=== PATIENT | male | born 1950 | race Caucasian/White ===

== ENCOUNTER → 2016-06-09 | Outpatient (CLI) | payer OTHER ==
[~2016-06-09] VITALS: Ht 182.9 cm; Wt 156.4 kg
[~2016-06-09] MED LIST: ALBU0.08 INH; ALL100 PO; ALLO100T PO; AMLO10TA4 PO; ASCA500 PO; ASPI81TA28 PO; ATOR-24 PO; CARV6.252 PO; CLB/200 PO; CYAN10005 PO; DIFL500T PO; ETOD500T95 PO; FEXO1TAB58 PO; FEXO60TA PO; FLM4 PO; FRRS300 PO; HYDR-5688 PO; NORT50CA PO; NORT75CA PO; NSNN50; NXM/40 PO; OMEP20TA PO; OXGN; OXYC-57 PO; POLY335019 PO; PREG200C PO; RANI300T2 PO; SPR25 PO; SULF500T36 PO; TAMS0.4C38 PO; TOPI100T45 PO; TORS10TA14 PO; TRAM100T PO
[2016-06-09 16:26] VITALS: BP 146/85; PULSE 82; Ht 182.9 cm; Wt 156.4 kg
== END | disposition home or self-care (01) ==
LOC: C.NEUR 15:37
PROVIDERS: ATTEND Internal Medicine Pulmonary Disease
DX: G47.33 Obstructive sleep apnea (adult) (pediatric) (principal); J96.90 Respiratory failure, unspecified, unspecified whether with hypoxia or hypercapnia; I27.81 Cor pulmonale (chronic)

== ENCOUNTER → 2016-06-18 | Outpatient (CLI) | payer OTHER ==
[2016-06-18 17:08] LABS: BASO % 0.5 %; BASO ABS # 0.04 K/uL (0-0.2); COMPLETE YES; EOS % 3.5 %; HEMATOCRIT 45.5 % (42-52); IG% 0.5 %; LYMPH % 36.7 %; LYMPH ABS # 2.83 K/uL (1.2-3.4); MEAN CELL VOLUME 89.2 fL (80-100); MEAN CORPUSCULAR HEMOGLOBIN 28.6 pg (25-34); MEAN CORPUSCULAR HGB CONC 32.1 g/dl (32-36); MEAN PLATELET VOLUME 11.2 fL (7.4-10.4); MONO % 10.4 %; NEUT % 48.4 %; PLATELET COUNT 137 K/uL (130-400); WHITE BLOOD COUNT 7.71 K/uL (4.8-10.8)
[2016-06-18 17:22] LABS: ALT/SGPT 20 U/L (12-78)
[2016-06-18 17:25] LABS: ALKALINE PHOSPHATASE 93 U/L (45-117); AST/SGOT 13 U/L (15-37)
== END | disposition home or self-care (01) ==
LOC: C.LABBC 15:02
PROVIDERS: ATTEND Internal Medicine Rheumatology
DX: Z92.29 Personal history of other drug therapy (principal)

== ENCOUNTER → 2016-06-20 | Outpatient (CLI) | payer OTHER ==
[2016-06-20 13:36] LABS: BLOOD UREA NITROGEN 18 mg/dl (7-18); BUN/CREATININE RATIO 14.8 (10-20); CALCIUM 9.2 mg/dl (8.5-10.1); CARBON DIOXIDE 26 mmol/L (21-32); CHLORIDE 110 mmol/L (98-107); GLUCOSE 105 mg/dl (70-99); POTASSIUM 4.3 mmol/L (3.5-5.1); SODIUM 142 mmol/L (136-145)
[2016-06-20 13:42] LABS: CHOLESTEROL 105 mg/dl (0-200); CHOLESTEROL/HDL RATIO 2.8; HDL CHOLESTEROL 38 mg/dl; LDL CHOLESTEROL CALCULATED 40 mg/dl; TRIGLYCERIDES 135 mg/dl (0-150); VERY LOW DENSITY LIPOPROT CALC 27 mg/dl
== END | disposition home or self-care (01) ==
LOC: C.LABBC 10:30
PROVIDERS: ATTEND Family Medicine
DX: E78.5 Hyperlipidemia, unspecified (principal); I50.30 Unspecified diastolic (congestive) heart failure

== ENCOUNTER → 2016-06-25 | Outpatient (CLI) | payer OTHER | END | disposition home or self-care (01) | LOC: C.LAB1850 15:33 | PROVIDERS: ATTEND Internal Medicine Rheumatology | DX: M10.9 Gout, unspecified (principal); M12.80 Other specific arthropathies, not elsewhere classified, unspecified site; Z79.1 Long term (current) use of non-steroidal anti-inflammatories (NSAID); Z92.29 Personal history of other drug therapy ==

== ENCOUNTER 2016-08-02 13:07 | Emergency (ER) | payer OTHER ==
[~2016-08-02 13:07] MED LIST changes: -ALLO100T PO; -ASPI81TA28 PO; -ATOR-24 PO; -CYAN10005 PO; -DIFL500T PO; -ETOD500T95 PO; -FEXO1TAB58 PO; -OMEP20TA PO; -OXYC-57 PO; -POLY335019 PO; -RANI300T2 PO; -TAMS0.4C38 PO; -TORS10TA14 PO
[2016-08-02 13:08] VITALS: TEMP 36.7
[2016-08-02] MEDS ORDERED: RANI300T2 PO (13:43)
[2016-08-02] MEDS ORDERED: FEXO1TAB58 PO (13:43)
[2016-08-02] MEDS ORDERED: OMEP20TA PO (13:43)
[2016-08-02] MEDS ORDERED: TAMS0.4C38 PO (13:43)
[2016-08-02] MEDS ORDERED: ETOD500T95 PO (13:43)
[2016-08-02] MEDS ORDERED: CYAN10005 PO (13:43)
[2016-08-02] MEDS ORDERED: ALLO100T PO (13:43)
[2016-08-02] MEDS ORDERED: DIFL500T PO (13:43)
[2016-08-02] MEDS ORDERED: TORS10TA14 PO (13:43)
[2016-08-02] MEDS ORDERED: ASPI81TA28 PO (13:43)
[2016-08-02] MEDS ORDERED: ATOR-24 PO (13:43)
[2016-08-02] MEDS ORDERED: OXYC-57 PO ×2 (13:44→15:18)
--- NOTE | 2016-08-02 14:34 | DIAGNOSTIC IMAGING REPORT ---
RIGHT KNEE 3 VIEWS CLINICAL HISTORY: Right knee pain following fall. COMPARISON: None FINDINGS: Alignment of the right knee is anatomic. There is no acute fracture. No joint effusion is evident. There is moderate arthritis of the right knee, most pronounced within the patellofemoral compartment. IMPRESSION: 1. No acute fracture. 2. Moderate osteoarthritis within the right knee, most pronounced within the patellofemoral compartment. Electronically signed by: Chacho Castillo M.D. 08/02/2016 2:33 PM Dictated Date/Time: 08/02/2016 2:32 PM
--- NOTE | 2016-08-02 14:38 | DIAGNOSTIC IMAGING REPORT ---
RIGHT FOREARM 2 VIEWS ROUTINE CLINICAL HISTORY: Right forearm pain, fall. COMPARISON: None FINDINGS: There is a suspected right elbow joint effusion with visualization of the posterior fat pad. This raises the possibility of an intra-articular fracture although a definite fracture is not identified. Ossific/calcific densities adjacent to the right elbow are likely old. No definite acute fracture of the right radius or ulna is identified. There is an equivocal impaction fracture of the right radial neck. IMPRESSION: Right elbow joint effusion which raises the possibility of an intra-articular fracture. Equivocal impacted right radial neck fracture. Electronically signed by: Chacho Castillo M.D. 08/02/2016 2:37 PM Dictated Date/Time: 08/02/2016 2:33 PM
--- NOTE | 2016-08-02 14:41 | DIAGNOSTIC IMAGING REPORT ---
RIGHT HAND MIN 3 VIEWS ROUTINE CLINICAL HISTORY: Right hand pain following fall. COMPARISON: None FINDINGS: Alignment of the right hand is anatomic. No acute fracture is identified. There is minimal joint space narrowing with mild osteophytosis within multiple articulations of the right hand. Carpal bones are intact. IMPRESSION: No acute fracture or dislocation of the right hand. Electronically signed by: Chacho Castillo M.D. 08/02/2016 2:40 PM Dictated Date/Time: 08/02/2016 2:37 PM
--- NOTE | 2016-08-02 15:08 | EMERGENCY ROOM VISIT NOTE ---
History First contact with patient: 13:12 Chief Complaint: FALL Stated Complaint: FELL LAST EVENING History of Present Illness The patient is a 65 year old male who presents to the Emergency Room with complaints of a fall which occurred yesterday evening. The patient states that he tripped over his oxygen hosing and fell yesterday. He states that he fell onto the right side, injuring his right knee and right elbow. He did not hit his head. He rates his discomfort a 6/10. He has not been taking any medication at home for the pain. He has been able to walk with the help of his cane. He denies any numbness or weakness. He denies any lacerations. Review of Systems A complete 6 point review of systems was reviewed with the patient with pertinent positives and negatives as per history of present illness. All else were negative. Past Medical/Surgical History Medical Problems: (1) Angioedema (2) Diab Lynne Wo Compl, Type Ii Or Unspec Type, Not Uncntrld (3) Diverticulitis Colon (W/O Ment Of Hemorrhage) (4) Diverticulosis Colon (W/O Ment Of Hemorrhage) (5) DVT (deep venous thrombosis) (6) Hyperlipidemia Nec/Nos (7) Hypertension Nos (8) Obesity, Nos (9) Obstructive Sleep Apnea (Adult) (Pediatric) Family History Gallbladder disease Heart disease Hypertension Stroke Social History Smoking Status: Never Smoker Alcohol Use: none Marital Status: Housing Status: lives with family Occupation Status: employed Current/Historical Medications Scheduled Allopurinol (Zyloprim), 100 MG PO DAILY Amlodipine Besylate (Norvasc), 5 MG PO DAILY Ascorbic Acid (Vitamin C), 500 MG PO QAM Aspirin (Aspirin Ec), 81 MG PO DAILY Atorvastatin (Lipitor), 40 MG PO DAILY Carvedilol (Coreg), 6.25 MG PO BID Cyanocobalamin (Vitamin B-12), 1,000 MCG PO DAILY Diflunisal (Dolobid), 500 MG PO BID Etodolac (Etodolac), 1 TAB PO BID Ferrous Sulfate (Ferrous Sulfate), 325 MG PO bid-tid Fexofenadine-Pseudoephedrine (Marifer-D 24 Hour Allergy), 1 TAB PO DAILY Nortriptyline Hcl (Pamelor), 3 CAP PO HS Omeprazole (Omeprazole), 2 TAB PO DAILY Oxygen (Oxygen), 2 LITERS NA CONTINOUS Ranitidine (Zantac), 300 MG PO HS Spironolactone (Spironolactone), 12.5 MG PO BID Sulfasalazine (Azulfidine), 1 TAB PO BID Tamsulosin Hcl (Flomax), 0.4 MG PO DAILY Topiramate (Topamax), 100 MG PO BID Torsemide (Demadex), 1-2 TABS PO DAILY Scheduled PRN Oxycodone/Acetaminophen 5MG/325MG (Percocet 5MG/325MG), 1-2 TABLETS PO Q6 PRN for Pain Oxycodone/Acetaminophen 5MG/325MG (Percocet 5MG/325MG), 1-2 TABS PO Q4H PRN for Pain Allergies Coded Allergies: Lisinopril (Verified Allergy, Severe, THROAT SWELLING; HYPERTENSION, ) Ibuprofen (Verified Allergy, Mild, NAUSEA/VOMITING/NERVOUSNESS/MOUTH WATER , 08/02/16) Physical Exam Vital Signs Date Time Temp Pulse Resp B/P Pulse Ox O2 Delivery O2 Flow Rate FiO2 08/02/16 15:21 82 20 127/90 92 08/02/16 13:08 36.7 82 20 145/86 92 Nasal Cannula Physical Exam VITALS: Vitals are noted on the nurse's note and reviewed by myself. Vital signs stable. GENERAL: This is a 65-year-old male, in no acute distress, nondiaphoretic, well- developed well-nourished. SKIN: Capillary reflex less than 2 seconds. HEENT: Normocephalic. PERRLA. EOMI. Nares patent. Mucous membranes moist. Neck is supple without nuchal rigidity. HEART: Regular rate and rhythm without murmurs gallops or rubs. LUNGS: Clear to auscultation bilaterally without wheezes, rales or rhonchi. MUSCULOSKELETAL: There is no tenderness to palpation of the right knee, but range of motion of the knee is limited due to patient discomfort. There is mild tenderness over the right radial head. Full range of motion of the right elbow. There is minimal tenderness of the right forearm and the lateral aspect of the right hand. NEURO: Patient was alert and oriented to person place and time. Normal sensation to light and sharp touch. Medical Decision & Procedures ER Provider Diagnostic Interpretation: RIGHT FOREARM 2 VIEWS ROUTINE FINDINGS: There is a suspected right elbow joint effusion with visualization of the posterior fat pad. This raises the possibility of an intra-articular fracture although a definite fracture is not identified. Ossific/calcific densities adjacent to the right elbow are likely old. No definite acute fracture of the right radius or ulna is identified. There is an equivocal impaction fracture of the right radial neck. IMPRESSION: Right elbow joint effusion which raises the possibility of an intra-articular fracture. Equivocal impacted right radial neck fracture. RIGHT HAND MIN 3 VIEWS ROUTINE IMPRESSION: No acute fracture or dislocation of the right hand. RIGHT KNEE 3 VIEWS IMPRESSION: 1. No acute fracture. 2. Moderate osteoarthritis within the right knee, most pronounced within the patellofemoral compartment. Medical Decision Differential diagnosis includes fracture, contusion, sprain, among others. The patient was evaluated as above. X-rays were obtained and read by radiology with the above findings. The patient does appear to have a radial neck fracture. He was placed in an arm sling. However, the patient is having significant difficulty walking due to the pain in his knee. He was given a walker and instructed to rest as much as possible for the next few days. He was instructed to follow-up with orthopedics for further evaluation of his injuries. He declined any analgesics. He verbalized understanding of my assessment and treatment plan and was discharged home in good condition. Impression Primary Impression: Fall Additional Impressions: Radial neck fracture Knee injury Departure Information Dispostion Home / Self-Care Condition GOOD Prescriptions Oxycodone/Acetaminophen 5MG/325MG (PERCOCET 5MG/325MG) Tab 1-2 TABS PO Q4H Y for Pain, #15 TAB For Initial Treatment Prov: Patricia Birmingham PA-C 08/02/16 Referrals Myranda Lu DO (PCP) Patient Instructions My [facility] Additional Instructions You have been treated in the Emergency Department for Knee Pain and an elbow fracture. You have been prescribed Percocet to be used for pain control. This is a narcotic medication. You cannot drive or consume alcohol while on this medicine. This medicine should only be used for pain that cannot be controlled with [id number] pain medicines. For pain control, you can use the following [id number] medicines (if >12 yo): - Regular strength (325mg/tab) Tylenol (acetaminophen) 2 tabs every 4-6 hours as needed. Do not exceed 12 tablets in a 24 hour period. Avoid taking more than 4 grams (4000 mg) of Tylenol per day. This includes any other sources of acetaminophen you may take on a regular basis. - Regular strength (200 mg/tab) Advil (ibuprofen) 1-2 tabs every 4-6 hours as needed. Do not exceed a dose of 3200 mg per day. If this is a recent injury (<24 hrs), ice can be applied to the area of pain for the first 3 days to help decrease pain and inflammation. Ice massages can be performed by freezing water in a paper cup, peeling back the cup to expose the ice and then massaging over the affected area. You have been provided the number for an Orthopaedic Surgeon. You should call this number as soon as possible to establish a follow-up visit from today's Emergency Department visit. Use the walker as needed until orthopedic follow up. Return to the Emergency Department if your current symptoms worsen despite treatment course outlined above. Problem Qualifiers Primary Impression: Fall Encounter type: initial encounter Qualified Codes: W19.XXXA - Unspecified fall, initial encounter Additional Impressions: Radial neck fracture Encounter type: initial encounter Fracture type: closed Fracture alignment : nondisplaced Laterality: right Qualified Codes: S52.134A - Nondisplaced fracture of neck of right radius, initial encounter for closed fracture Knee injury Encounter type: initial encounter Laterality: right Qualified Codes: S89.91XA - Unspecified injury of right lower leg, initial encounter
[2016-08-02 15:21] VITALS: BP 127/90; PULSE 82; O2SAT 92
== END 2016-08-02 15:23 | disposition home or self-care (01) ==
LOC: C.EDB 13:08 → C.EDD 15:23
DX: S52.134A Nondisplaced fracture of neck of right radius, initial encounter for closed fracture (principal); W01.0XXA Fall on same level from slipping, tripping and stumbling without subsequent striking against object, initial encounter; E11.9 Type 2 diabetes mellitus without complications; E78.5 Hyperlipidemia, unspecified; I10 Essential (primary) hypertension; K57.90 Diverticulosis of intestine, part unspecified, without perforation or abscess without bleeding; K57.92 Diverticulitis of intestine, part unspecified, without perforation or abscess without bleeding; G47.33 Obstructive sleep apnea (adult) (pediatric); Z86.718 Personal history of other venous thrombosis and embolism; Z79.82 Long term (current) use of aspirin; Z79.899 Other long term (current) drug therapy; Z88.6 Allergy status to analgesic agent; Z88.8 Allergy status to other drugs, medicaments and biological substances; Z83.79 Family history of other diseases of the digestive system; Z82.49 Family history of ischemic heart disease and other diseases of the circulatory system; Z82.3 Family history of stroke

== ENCOUNTER → 2016-10-28 | Outpatient (CLI) | payer OTHER ==
[~2016-10-28] MED LIST changes: -ALBU0.08 INH; -ALL100 PO; +ALLO100T PO; +ASPI81TA28 PO; +ATOR-24 PO; -CLB/200 PO; +CYAN10005 PO; +DIFL500T PO; +ETOD500T95 PO; +FEXO1TAB58 PO; -FEXO60TA PO; -FLM4 PO; -HYDR-5688 PO; -NORT75CA PO; -NSNN50; -NXM/40 PO; +OMEP20TA PO; +OXYC-57 PO; +POLY335019 PO; -PREG200C PO; +RANI300T2 PO; +TAMS0.4C38 PO; +TORS10TA14 PO; -TRAM100T PO
[2016-10-28 15:48] LABS: BASO % 0.3 %; BASO ABS # 0.03 K/uL (0-0.2); COMPLETE YES; EOS % 2.9 %; HEMATOCRIT 48.7 % (42-52); IG% 0.7 %; LYMPH % 28.1 %; LYMPH ABS # 2.89 K/uL (1.2-3.4); MEAN CELL VOLUME 92.1 fL (80-100); MEAN CORPUSCULAR HEMOGLOBIN 29.1 pg (25-34); MEAN CORPUSCULAR HGB CONC 31.6 g/dl (32-36); MEAN PLATELET VOLUME 10.4 fL (7.4-10.4); PLATELET COUNT 179 K/uL (130-400); RED BLOOD COUNT 5.29 M/uL (4.7-6.1)
[2016-10-28 15:59] LABS: ALT/SGPT 23 U/L (12-78); AST/SGOT 12 U/L (15-37)
== END | disposition home or self-care (01) ==
LOC: C.LAB1850 14:29
PROVIDERS: ATTEND Internal Medicine Rheumatology
DX: M10.9 Gout, unspecified (principal); Z79.1 Long term (current) use of non-steroidal anti-inflammatories (NSAID); M12.80 Other specific arthropathies, not elsewhere classified, unspecified site; Z92.29 Personal history of other drug therapy

== ENCOUNTER 2016-11-13 19:03 | Emergency (ER) | payer OTHER ==
[~2016-11-13] VITALS: Ht 182.9 cm; Wt 143.5 kg
[~2016-11-13 19:03] MED LIST changes: -POLY335019 PO
[2016-11-13 19:08] VITALS: TEMP 36.4; Ht 182.9 cm; Wt 143.5 kg
[2016-11-13] MEDS ORDERED: SODIUM CHLORIDE 0.9% 1000ML 1,000 ML IV STA (20:08)
[2016-11-13] MEDS ORDERED: ONDANSETRON INJ 2 MG/ML 2 ML VIAL IV STA (20:08)
--- NOTE | 2016-11-13 20:13 | EMERGENCY ROOM VISIT NOTE ---
History Report prepared by [place]: Parul Bernabe Under the Supervision of: Dr. Bryan Amor D.O. First contact with patient: 20:04 Chief Complaint: ABDOMINAL PAIN Stated Complaint: ABD PAIN Nursing Triage Summary: Patient c/o abdominal and nausea since this morning. Denies fevers, vomiting, diarrhea. History of Present Illness The patient is a 65 year old male who presents to the Emergency Room with complaints of waxing and waning left abdominal pain that started this morning. The patient denies chest pain, shortness of breath, vomiting, back pain, or no urinary symptoms. He also notes he has had some nausea. The patient has a history of diverticulitis. The patient is on 3 liters of home oxygen. The patient has a history of neuropathy, arthritis, a slightly enlarged aorta, and pulmonary hypertension. Source of History: patient Onset: this morning Position: abdomen Timing: waxes/wanes Associated Symptoms: + nausea, No chest pain, No SOB, No vomiting, No back pain, No urinary symptoms Review of Systems See HPI for pertinent positives & negatives. A total of 10 systems reviewed and were otherwise negative. Past Medical & Surgical Medical Problems: (1) Angioedema (2) Diab Lynne Wo Compl, Type Ii Or Unspec Type, Not Uncntrld (3) Diverticulitis Colon (W/O Ment Of Hemorrhage) (4) Diverticulosis Colon (W/O Ment Of Hemorrhage) (5) DVT (deep venous thrombosis) (6) Hyperlipidemia Nec/Nos (7) Hypertension Nos (8) Obesity, Nos (9) Obstructive Sleep Apnea (Adult) (Pediatric) Family History Gallbladder disease Heart disease Hypertension Stroke Social History Smoking Status: Never Smoker Alcohol Use: none Marital Status: Housing Status: lives with family Occupation Status: employed Current/Historical Medications Scheduled Allopurinol (Zyloprim), 100 MG PO DAILY Amlodipine Besylate (Norvasc), 5 MG PO DAILY Ascorbic Acid (Vitamin C), 500 MG PO QAM Aspirin (Aspirin Ec), 81 MG PO DAILY Atorvastatin (Lipitor), 40 MG PO DAILY Carvedilol (Coreg), 6.25 MG PO BID Cyanocobalamin (Vitamin B-12), 1,000 MCG PO DAILY Diflunisal (Dolobid), 500 MG PO BID Etodolac (Etodolac), 1 TAB PO BID Ferrous Sulfate (Ferrous Sulfate), 325 MG PO bid-tid Fexofenadine-Pseudoephedrine (Marifer-D 24 Hour Allergy), 1 TAB PO DAILY Home O2 Therapy (Oxygen), 2 LITERS NA CONTINOUS Nortriptyline Hcl (Pamelor), 3 CAP PO HS Omeprazole (Omeprazole), 2 TAB PO DAILY Polyethylene Glycol 3350 (Miralax), 17 GM PO DAILY Ranitidine (Zantac), 300 MG PO HS Spironolactone (Spironolactone), 12.5 MG PO BID Sulfasalazine (Azulfidine), 1 TAB PO BID Tamsulosin Hcl (Flomax), 0.4 MG PO DAILY Topiramate (Topamax), 100 MG PO BID Torsemide (Demadex), 1-2 TABS PO DAILY Scheduled PRN Oxycodone/Acetaminophen 5MG/325MG (Percocet 5MG/325MG), 1-2 TABLETS PO Q6 PRN for Pain Oxycodone/Acetaminophen 5MG/325MG (Percocet 5MG/325MG), 1-2 TABS PO Q4H PRN for Pain Oxycodone/Acetaminophen 5MG/325MG (Percocet 5MG/325MG), 1 TAB PO Q4H PRN for Severe Pain Allergies Coded Allergies: Lisinopril (Verified Allergy, Severe, THROAT SWELLING; HYPERTENSION, ) Ibuprofen (Verified Allergy, Mild, NAUSEA/VOMITING/NERVOUSNESS/MOUTH WATER , 08/02/16) Physical Exam Vital Signs Date Time Temp Pulse Resp B/P (MAP) Pulse Ox O2 Delivery O2 Flow Rate FiO2 11/13/16 22:30 70 20 134/91 95 11/13/16 21:58 76 11/13/16 20:53 74 18 143/114 96 Room Air 11/13/16 19:08 36.4 80 18 158/92 91 Nasal Cannula 3.0 Physical Exam GENERAL: Patient is awake, alert, and in no acute distress. Patient is resting comfortably and showing no signs of anxiety EYES: The conjunctivae are clear. The pupils are round and reactive. EARS, NOSE, MOUTH AND THROAT: The nose is without any evidence of any deformity. Mucous membranes are moist tongue is midline NECK: The neck is nontender and supple. RESPIRATORY: Normal respiratory effort is noted there is no evidence of wheezing rhonchi or rales CARDIOVASCULAR: Regular rate and rhythm noted there no murmurs rubs or gallops normal S1 normal S2 GASTROINTESTINAL: The abdomen is soft and mildly distended. Bowel sounds are present in all quadrants. Abdomen is tender in LLQ to palpation no guarding or rigidity. MUSCULOSKELETAL/EXTREMITIES: There is no evidence of gross deformity full range of motion is noted in the hips and shoulders SKIN: There is no obvious evidence of any rash. There are no petechiae, pallor or cyanosis noted. NEUROLOGIC: Patient is awake alert and oriented x3 strength is symmetric patellar reflexes are 2+ bilaterally Medical Decision & Procedures ER Provider Diagnostic Interpretation: Radiology results as stated below per my review and radiologist interpretation: ABD/PELVIS NO IV OR ORAL CONT FINDINGS: Large hiatal hernia with majority of the stomach present intrathoracically again noted. Minimal right lower lobe atelectasis or scarring is present. No pneumoperitoneum. Coronary arterial calcifications noted. There is diffuse fatty infiltration of the liver. Prior cholecystectomy. Nonspecific 6 mm low attenuating lesion of the mid spleen is seen, statistically benign. There is mild pancreatic atrophy. Prior cholecystectomy. Adrenal glands are unremarkable. Punctate nonobstructing calculus involves interpolar left kidney. Additional punctate nonobstructing calculus involves interpolar right kidney. Additionally, there is a 2 mm calculus of the mid right ureter at the level of L5-S1 without significant right-sided hydronephrosis. Urinary bladder is unremarkable. Coarse central calcifications are seen within a mildly prominent prostate. There are fat filled bilateral inguinal hernias. Small fat filled periumbilical hernia is noted, diastases 1.9 cm. There is tortuosity with mild fusiform aneurysmal dilation of the infrarenal abdominal aorta, 2.5 x 3.1 cm. There is atherosclerotic plaquing of the aorta and iliac vasculature. No bulky retroperitoneal adenopathy. There is no bowel obstruction. Colonic diverticula noted without acute diverticulitis. The majority of the colon is within the right lower abdomen. Bones are intact. IMPRESSION: 1. 2 mm calculus of the mid right ureter at the level of L5-S1 without significant obstructive uropathy. Additional punctate bilateral nonobstructing renal calculi are also noted. 2. Colonic diverticulosis without diverticulitis. 3. Large hiatal hernia with partially intrathoracic stomach. 4. Mild fusiform aneurysmal dilation of the infrarenal abdominal aorta, 3.1 cm. 5. Fatty infiltration of the liver. The above report was generated using voice recognition software. It may contain grammatical, syntax or spelling errors. Electronically signed by: Patrice Rivas M.D. CHEST ONE VIEW PORTABLE FINDINGS: Large hiatal hernia with intrathoracic stomach is redemonstrated, again notably at the level of the right lung base suggesting associated gastric volvulus as seen on comparison CT. Subsegmental right basilar opacities are unchanged suggesting atelectasis and/or scarring. The bones are grossly intact. IMPRESSION: 1. No acute cardiopulmonary process. 2. Large hiatal hernia with partially intrathoracic stomach and right basilar atelectasis/scarring redemonstrated. The above report was generated using voice recognition software. It may contain grammatical, syntax or spelling errors. Electronically signed by: Patrice Rivas M.D. Laboratory Results 11/13/16 20:15 Red Blood Count 5.21, Mean Corpuscular Volume 91.9, Mean Corpuscular Hemoglobin 30.9, Mean Corpuscular Hemoglobin Concent 33.6, Mean Platelet Volume 10.2, Neutrophils (%) (Auto) 47.0, Lymphocytes (%) (Auto) 40.3, Monocytes (%) (Auto) 8.8, Eosinophils (%) (Auto) 3.1, Basophils (%) (Auto) 0.4, Neutrophils # (Auto) 4.46, Lymphocytes # (Auto) 3.82, Monocytes # (Auto) 0.83, Eosinophils # (Auto) 0.29, Basophils # (Auto) 0.04 11/13/16 20:15 Test 11/13/16 20:15 White Blood Count 9.48 K/uL (4.8-10.8) Red Blood Count 5.21 M/uL (4.7-6.1) Hemoglobin 16.1 g/dL (14.0-18.0) Hematocrit 47.9 % (42-52) Mean Corpuscular Volume 91.9 fL (80-100) Mean Corpuscular Hemoglobin 30.9 pg (25-34) Mean Corpuscular Hemoglobin Concent 33.6 g/dl (32-36) Platelet Count 169 K/uL (130-400) Mean Platelet Volume 10.2 fL (7.4-10.4) Neutrophils (%) (Auto) 47.0 % Lymphocytes (%) (Auto) 40.3 % Monocytes (%) (Auto) 8.8 % Eosinophils (%) (Auto) 3.1 % Basophils (%) (Auto) 0.4 % Neutrophils # (Auto) 4.46 K/uL (1.4-6.5) Lymphocytes # (Auto) 3.82 K/uL (1.2-3.4) Monocytes # (Auto) 0.83 K/uL (0.11-0.59) Eosinophils # (Auto) 0.29 K/uL (0-0.5) Basophils # (Auto) 0.04 K/uL (0-0.2) RDW Standard Deviation 46.5 fL (36.4-46.3) RDW Coefficient of Variation 13.8 % (11.5-14.5) Immature Granulocyte % (Auto) 0.4 % Immature Granulocyte # (Auto) 0.04 K/uL (0.00-0.02) Prothrombin Time 10.0 SECONDS (9.0-12.0) Prothromb Time International Ratio 0.9 (0.9-1.1) Activated Partial Thromboplast Time 33.1 SECONDS (21.0-31.0) Partial Thromboplastin Ratio 1.3 Urine Color YELLOW Urine Appearance CLEAR (CLEAR) Urine pH 6.5 (4.5-7.5) Urine Specific Mcfaddin 1.019 (1.000-1.030) Urine Protein NEG (NEG) Urine Glucose (UA) NEG (NEG) Urine Ketones NEG (NEG) Urine Occult Blood NEG (NEG) Urine Nitrite NEG (NEG) Urine Bilirubin NEG (NEG) Urine Urobilinogen NEG (NEG) Urine Leukocyte Esterase TRACE (NEG) Urine WBC (Auto) 1-5 /hpf (0-5) Urine RBC (Auto) 0-4 /hpf (0-4) Urine Hyaline Casts (Auto) 0 /lpf (0-5) Urine Epithelial Cells (Auto) 10-20 /lpf (0-5) Urine Bacteria (Auto) NEG (NEG) Anion Gap 6.0 mmol/L (3-11) Est Creatinine Clear Calc Drug Dose 89.0 ml/min Estimated GFR () 72.6 Estimated GFR (Non- 62.6 BUN/Creatinine Ratio 11.5 (10-20) Calcium Level 9.1 mg/dl (8.5-10.1) Total Bilirubin 0.6 mg/dl (0.2-1) Direct Bilirubin 0.2 mg/dl (0-0.2) Aspartate Amino Transf (AST/SGOT) 25 U/L (15-37) Alanine Aminotransferase (ALT/SGPT) 28 U/L (12-78) Alkaline Phosphatase 118 U/L (45-117) Troponin I < 0.015 ng/ml (0-0.045) Total Protein 7.8 gm/dl (6.4-8.2) Albumin 4.0 gm/dl (3.4-5.0) Lipase 131 U/L (73-393) Laboratory results per my review. Medications Administered Medications (Trade) Dose Ordered Sig/Christiano Route Start Time Stop Time Status Last Admin Dose Admin Sodium Chloride 1,000 ml @ 999 mls/hr Q1H1M STAT IV 11/13/16 20:08 11/13/16 21:08 DC 11/13/16 20:50 999 MLS/HR Ondansetron HCl (Zofran Inj) 4 mg NOW STAT IV 11/13/16 20:08 11/13/16 20:10 DC 11/13/16 20:50 4 MG Morphine Sulfate (MoRPHine SULFATE INJ) 4 mg Q15M PRN IV 11/13/16 20:15 11/27/16 20:14 11/13/16 20:51 4 MG Oxycodone HCl (Roxicodone Immediate Rel 5MG Home Pack) 1 homepack UD ONCE PO 11/13/16 22:15 11/13/16 22:16 DC 11/13/16 22:15 1 HOMEPACK Ondansetron HCl (ZOFRAN ODT 4MG Home Pack) 1 homepack UD ONCE PO 11/13/16 22:15 11/13/16 22:16 DC 11/13/16 22:15 1 HOMEPACK ECG Indication: abdominal pain Rate (beats per minute): 75 Rhythm: normal sinus Findings: no ectopy, other (no ST abnormality) Comparison ECG Date: 09/04/15 Change: no significant change ED Course 2006: The patient was evaluated in room B10. A complete history and physical examination were performed. 2008: Zofran Inj 4 mg IV, NSS 1,000 ml @ 999 mls/hr IV. 2015: Morphine Sulfate 4 mg IV 2157: I checked on the patient he is resting comfortably. 2214: Ondansetron HCl 1 homepack PO, Oxycodone HCl 1 homepack PO. 2199: Upon reevaluation, the patient is resting. I discussed the results and treatment plan with him. He verbalized agreement of the treatment plan. The patient was discharged home. Medical Decision Differential diagnosis: Etiologies such as appendicitis, diverticulitis, PUD, biliary pathology, UTI, pancreatitis, obstruction, mesenteric ischemia, aortic pathology, infections, inflammatory bowel disease, renal colic, as well as others were entertained. Nursing notes reviewed. The patient is a 65-year-old male who presented to the emergency department for evaluation of left-sided abdominal pain. The patient's physical exam did not appear to be consistent with an acute surgical abdomen. His white blood cell count was negative. The patient does have a history of diverticulosis and was concerned this could be related to diverticulosis. The patient was found have kidney stones on CT but I'm unsure if this is related to his visit this evening because the ureteral calculus was noted on the right. I discussed the patient's laboratory and radiographic studies with him. He was treated with IV fluids IV pain medicine and IV antiemetics. On subsequent reevaluation he was feeling much better. He was encouraged to rest and avoid any strenuous activity. He was also encouraged to continue all medications as prescribed and drink plenty of liquids. He was also encouraged to return the emergency department immediately if symptoms change worsen or if the need arises otherwise he was encouraged to follow-up with his doctor as soon as possible. Medication Reconcilliation Current Medication List: was personally reviewed by me Blood Pressure Screening Patient's blood pressure: Elevated blood pressure Blood pressure disposition: Elevated BP felt to be situational Impression Primary Impression: Left lower quadrant pain Additional Impression: Kidney stone Scribe Attestation The scribe's documentation has been prepared under my direction and personally reviewed by me in its entirety. I confirm that the note above accurately reflects all work, treatment, procedures, and medical decision making performed by me. Departure Information Dispostion Home / Self-Care Prescriptions Oxycodone/Acetaminophen 5MG/325MG (PERCOCET 5MG/325MG) Tab 1 TAB PO Q4H Y for Severe Pain, #20 TAB Prov: Bryan Amor DO 11/13/16 Polyethylene Glycol 3350 (MIRALAX) 1 Pow Pow 17 GM PO DAILY, #527 GM Prov: Bryan Amor DO 11/13/16 Referrals Myranda Lu DO (PCP) Forms HOME CARE DOCUMENTATION FORM, IMPORTANT VISIT INFORMATION Patient Instructions Abdominal Pain, My [facility] [address] Additional Instructions Call your family in the morning. Continue all medications as prescribed. Rest and avoid any strenuous activity. Return to the emergency department immediately if symptoms change worsen or if the need arises. Problem Qualifiers
[2016-11-13] MEDS ORDERED: MoRPHine SULFATE 4 MG/ML 1 ML CARP\\VIAL IV PRN (20:15)
[2016-11-13 20:42] LABS: URINE APPEARANCE CLEAR (CLEAR); URINE BILIRUBIN NEG (NEG); URINE COLOR YELLOW; URINE NITRITE NEG (NEG); URINE PH 6.5 (4.5-7.5); URINE SPECIFIC GRAVITY 1.019 (1.000-1.030); UROBILINOGEN NEG (NEG)
[2016-11-13 20:44] LABS: MANUAL MICROSCOPIC REQUIRED? NO; REVIEW REQ? NO
[2016-11-13 20:45] LABS: BASO % 0.4 %; BASO ABS # 0.04 K/uL (0-0.2); COMPLETE YES; EOS % 3.1 %; HEMATOCRIT 47.9 % (42-52); IG% 0.4 %; LYMPH % 40.3 %; LYMPH ABS # 3.82 K/uL (1.2-3.4); MEAN CELL VOLUME 91.9 fL (80-100); MEAN CORPUSCULAR HEMOGLOBIN 30.9 pg (25-34); MEAN CORPUSCULAR HGB CONC 33.6 g/dl (32-36); MEAN PLATELET VOLUME 10.2 fL (7.4-10.4); MONO % 8.8 %; PLATELET COUNT 169 K/uL (130-400); RED BLOOD COUNT 5.21 M/uL (4.7-6.1); WHITE BLOOD COUNT 9.48 K/uL (4.8-10.8)
--- NOTE | 2016-11-13 20:53 | DIAGNOSTIC IMAGING REPORT ---
CHEST ONE VIEW PORTABLE HISTORY: 65 years-old Male ABDOMINAL PAIN/GI COMPARISON: Portable chest radiograph 09/01/2014, CT abdomen and pelvis 11/04/2012 TECHNIQUE: Portable upright AP view of the chest. FINDINGS: Large hiatal hernia with intrathoracic stomach is redemonstrated, again notably at the level of the right lung base suggesting associated gastric volvulus as seen on comparison CT. Subsegmental right basilar opacities are unchanged suggesting atelectasis and/or scarring. The bones are grossly intact. IMPRESSION: 1. No acute cardiopulmonary process. 2. Large hiatal hernia with partially intrathoracic stomach and right basilar atelectasis/scarring redemonstrated. The above report was generated using voice recognition software. It may contain grammatical, syntax or spelling errors. Electronically signed by: Patrice Rivas M.D. 11/13/2016 8:52 PM Dictated Date/Time: 11/13/2016 8:47 PM
[2016-11-13 20:54] LABS: INR 0.9 (0.9-1.1); PARTIAL THROMBOPLASTIN RATIO 1.3
[2016-11-13 21:02] LABS: ALT/SGPT 28 U/L (12-78); AST/SGOT 25 U/L (15-37); BLOOD UREA NITROGEN 14 mg/dl (7-18); BUN/CREATININE RATIO 11.5 (10-20); CALCIUM 9.1 mg/dl (8.5-10.1); CARBON DIOXIDE 27 mmol/L (21-32); CHLORIDE 105 mmol/L (98-107); GLUCOSE 93 mg/dl (70-99); POTASSIUM 3.7 mmol/L (3.5-5.1); SODIUM 138 mmol/L (136-145)
[2016-11-13 21:07] LABS: ALKALINE PHOSPHATASE 118 U/L (45-117)
--- NOTE | 2016-11-13 21:36 | DIAGNOSTIC IMAGING REPORT ---
ABD/PELVIS NO IV OR ORAL CONT HISTORY: 65 years-old Male acute left-sided flank pain COMPARISON: CT abdomen and pelvis 11/04/2012 TECHNIQUE: Multiple axial CT images of the abdomen and pelvis were obtained without contrast A dose lowering technique was used consistent with the principals of [facility]. FINDINGS: Large hiatal hernia with majority of the stomach present intrathoracically again noted. Minimal right lower lobe atelectasis or scarring is present. No pneumoperitoneum. Coronary arterial calcifications noted. There is diffuse fatty infiltration of the liver. Prior cholecystectomy. Nonspecific 6 mm low attenuating lesion of the mid spleen is seen, statistically benign. There is mild pancreatic atrophy. Prior cholecystectomy. Adrenal glands are unremarkable. Punctate nonobstructing calculus involves interpolar left kidney. Additional punctate nonobstructing calculus involves interpolar right kidney. Additionally, there is a 2 mm calculus of the mid right ureter at the level of L5-S1 without significant right-sided hydronephrosis. Urinary bladder is unremarkable. Coarse central calcifications are seen within a mildly prominent prostate. There are fat filled bilateral inguinal hernias. Small fat filled periumbilical hernia is noted, diastases 1.9 cm. There is tortuosity with mild fusiform aneurysmal dilation of the infrarenal abdominal aorta, 2.5 x 3.1 cm. There is atherosclerotic plaquing of the aorta and iliac vasculature. No bulky retroperitoneal adenopathy. There is no bowel obstruction. Colonic diverticula noted without acute diverticulitis. The majority of the colon is within the right lower abdomen. Bones are intact. IMPRESSION: 1. 2 mm calculus of the mid right ureter at the level of L5-S1 without significant obstructive uropathy. Additional punctate bilateral nonobstructing renal calculi are also noted. 2. Colonic diverticulosis without diverticulitis. 3. Large hiatal hernia with partially intrathoracic stomach. 4. Mild fusiform aneurysmal dilation of the infrarenal abdominal aorta, 3.1 cm. 5. Fatty infiltration of the liver. The above report was generated using voice recognition software. It may contain grammatical, syntax or spelling errors. Electronically signed by: Patrice Rivas M.D. 11/13/2016 9:35 PM Dictated Date/Time: 11/13/2016 9:24 PM
[2016-11-13] MEDS ORDERED: OXYC-57 PO (22:08)
[2016-11-13] MEDS ORDERED: POLY335019 PO (22:08)
[2016-11-13] MEDS ORDERED: ONDANSETRON HOME PACK 4MG OD TAB PO ONE (22:15)
[2016-11-13] MEDS ORDERED: OXYCODONE IR HOME PACK PO ONE (22:15)
[2016-11-13 22:30] VITALS: BP 134/91; PULSE 70; O2SAT 95
== END 2016-11-13 22:31 | disposition home or self-care (01) ==
LOC: C.EDB 19:04
DX: N20.2 Calculus of kidney with calculus of ureter (principal); Z99.81 Dependence on supplemental oxygen; E11.43 Type 2 diabetes mellitus with diabetic autonomic (poly)neuropathy; M19.90 Unspecified osteoarthritis, unspecified site; I27.2 Other secondary pulmonary hypertension; Z86.718 Personal history of other venous thrombosis and embolism; E78.5 Hyperlipidemia, unspecified; I10 Essential (primary) hypertension; E66.9 Obesity, unspecified; Z68.41 Body mass index [BMI] 40.0-44.9, adult; G47.33 Obstructive sleep apnea (adult) (pediatric); Z82.49 Family history of ischemic heart disease and other diseases of the circulatory system; Z82.3 Family history of stroke; Z79.82 Long term (current) use of aspirin; Z79.899 Other long term (current) drug therapy

== ENCOUNTER → 2016-12-08 | Outpatient (CLI) | payer OTHER ==
[~2016-12-08] VITALS: Ht 182.9 cm; Wt 142.6 kg
[~2016-12-08] MED LIST changes: +POLY335019 PO
[2016-12-08 15:42] VITALS: BP 130/79; PULSE 80; Ht 182.9 cm; Wt 142.6 kg
== END | disposition home or self-care (01) ==
LOC: C.NEUR 15:27
PROVIDERS: ATTEND Physician Assistant Medical
DX: G47.33 Obstructive sleep apnea (adult) (pediatric) (principal); J30.9 Allergic rhinitis, unspecified; I27.81 Cor pulmonale (chronic); I27.2 Other secondary pulmonary hypertension

== ENCOUNTER → 2017-04-07 | Outpatient (CLI) | payer OTHER ==
[~2017-04-07] MED LIST changes: -ALLO100T PO; +ALLO100T57 PO; +AMLO-110 PO; -AMLO10TA4 PO; -ASCA500 PO; +ASCO500C43 PO; +ASPCH81X PO; -ASPI81TA28 PO; -CYAN10005 PO; -DIFL500T PO; +FERR1TAB23 PO; +FEXO1TAB49 PO; -FEXO1TAB58 PO; -FRRS300 PO; -NORT50CA PO; +NRT/50 PO; -OMEP20TA PO; -POLY335019 PO; +PRLSR20 PO; +SPIR25TA PO; -SPR25 PO; +SULF500T35 PO; -SULF500T36 PO; +TOPI100T20 PO; -TOPI100T45 PO; +VNTHFA/IN INH
[2017-04-07 13:16] LABS: BASO % 0.7 %; BASO ABS # 0.06 K/uL (0-0.2); EOS % 2.8 %; EOS ABS # 0.23 K/uL (0-0.5); HEMATOCRIT 45.7 % (42-52); IG# 0.09 K/uL (0.00-0.02); LYMPH % 33.1 %; LYMPH ABS # 2.69 K/uL (1.2-3.4); MEAN CELL VOLUME 90.9 fL (80-100); MEAN CORPUSCULAR HEMOGLOBIN 29.8 pg (25-34); MEAN CORPUSCULAR HGB CONC 32.8 g/dl (32-36); MEAN PLATELET VOLUME 10.4 fL (7.4-10.4); MONO ABS # 0.65 K/uL (0.11-0.59); NEUT % 54.3 %; PLATELET COUNT 183 K/uL (130-400); RED CELL DISTRIBUTION WIDTH SD 49.9 fL (36.4-46.3); WHITE BLOOD COUNT 8.12 K/uL (4.8-10.8)
[2017-04-07 13:35] LABS: ALBUMIN 3.6 gm/dl (3.4-5.0); ALT/SGPT 24 U/L (12-78); AST/SGOT 16 U/L (15-37); BLOOD UREA NITROGEN 19 mg/dl (7-18); CALCIUM 8.8 mg/dl (8.5-10.1); CARBON DIOXIDE 23 mmol/L (21-32); CHOLESTEROL 99 mg/dl (0-200); CREATININE 1.08 mg/dl (0.60-1.40); GLUCOSE 90 mg/dl (70-99); SODIUM 138 mmol/L (136-145); URIC ACID 2.6 mg/dl (2.6-7.2)
[2017-04-07 13:39] LABS: ALKALINE PHOSPHATASE 92 U/L (45-117); LDL CHOLESTEROL CALCULATED 29 mg/dl; TOTAL PROTEIN 6.9 gm/dl (6.4-8.2)
== END | disposition home or self-care (01) ==
LOC: C.LABBC 10:06
PROVIDERS: ATTEND Internal Medicine Rheumatology
DX: I10 Essential (primary) hypertension (principal); E78.5 Hyperlipidemia, unspecified; M10.9 Gout, unspecified; Z79.1 Long term (current) use of non-steroidal anti-inflammatories (NSAID); M47.819 Spondylosis without myelopathy or radiculopathy, site unspecified

== ENCOUNTER → 2017-05-10 | Day surgery (SDC) | payer OTHER ==
[2017-03-03 10:10] VITALS: Ht 182.9 cm; Wt 136.4 kg
[~2017-05-10] VITALS: Ht 182.9 cm; Wt 136.4 kg
[~2017-05-10] MED LIST changes: +500ML BSS 0.3ML EPI 1:1000PF IRRIG ONE; +ACETAMINOPHEN 325 MG TAB PO PRN; +AMVISC PLUS 0.8ML SYRINGE INT OCU ONE; +ATROPINE SULFATE 0.1 MG/ML 5ML SYR IV PRN; +BRIMONIDINE TART 0.2% OP SOLN PER DROP CHARGE ONE; +BSS FLUSH ONE; +CYCLOPENTOLATE HCL 1% OP SOLN PER DROP CHARGE OPL SCH; +ENDOCOAT 0.85ML SYRINGE INT OCU ONE; +EpHEDrine SULFATE INJ 50 MG/ML AMP IV PRN; +EpINEphrine INJ 1MG/ML AMP 1 MG/ML AMP ONE; +KETOROLAC 0.5% OP SOLN PER DROP CHARGE OPL SCH; +LACTATED RINGER'S 1000ML 500 ML IV SCH; +LIDOCAINE 4% OP SOLN DROP CHARGE ONE; +LIDOCAINE 4% OP SOLN DROP CHARGE OPL SCH; +LIDOCAINE HCL 1% MPF 2 ML VIAL ONE; +MIDAZOLAM HCL 1 MG/ML 2ML VIAL ONE; +MIX: 3ML BSS AND 1ML EPI(PF) TOP ONE; +MOXIFLOXACIN OPH SOLN PER DROP CHARGE ONE; +MOXIFLOXACIN OPH SOLN PER DROP CHARGE OPL SCH; +PHENYLEPHRINE HCL 2.5% OP SOLN PER DROP CHARGE OPL SCH; +POVIDONE-IODINE OP SOLN 30 ML BTL ONE; +PROPARACAINE 0.5% OP SOLN PER DROP CHARGE OPL SCH; +TOBRAMYCIN/DEXAMETHASONE OPH OINT PER APPLN CHARGE ONE; +TROPICAMIDE 1% OP SOLN PER DROP CHARGE OPL SCH
[2017-05-10] MEDS: PHENYLEPHRINE HCL 2.5% OP SOLN PER DROP CHARGE OPL SCH ×2 (09:21→09:27)
[2017-05-10] MEDS: TROPICAMIDE 1% OP SOLN PER DROP CHARGE OPL SCH ×2 (09:22→09:28)
[2017-05-10] MEDS: CYCLOPENTOLATE HCL 1% OP SOLN PER DROP CHARGE OPL SCH ×2 (09:24→09:29)
[2017-05-10] MEDS: KETOROLAC 0.5% OP SOLN PER DROP CHARGE OPL SCH ×2 (09:25→09:30)
[2017-05-10] MEDS: MOXIFLOXACIN OPH SOLN PER DROP CHARGE OPL SCH ×2 (09:26→09:32)
--- NOTE | 2017-05-10 09:29 | History & Physical Bridge - SC ---
H&P Re-Evaluation Bridge Note: I have examined the patient, reviewed the History & Physical and in the interval since the performance of the History & Physical I have noted the following changes of clinical significance: No changes noted
--- NOTE | 2017-05-10 10:32 | [facility] Operative Report ---
Operative Report Operative Date May 10, 2017. Pre-Operative Diagnosis Cataract Left Eye Post-Operative Diagnosis Same Procedure(s) Performed Left Cataract Phacoemulsification With Intraocular Lens Implant Surgeon Dr. Ruvalcaba Java Spring Developer Surgeon(s) None Estimated Blood Loss 0ml Findings cataract left eye Fluids see anesthesia record Specimens None Drains None Anesthesia Type MAC Complication(s) none Disposition no Recovery Room / PACU Indications decreased vision left eye Description of Procedure After informed consent was obtained in the holding area the patient was wheeled back to the operating room where cardiac monitoring leads and oxygen by nasal cannula was administered by Anesthesia. Gentle IV sedation was given, and the patient's left eye was prepped and draped in usual sterile fashion. A wire lid speculum was placed into the left eye and the operating microscope was swung into position. Using 0.12 forceps and a Supersharp blade a paracentesis port was made 2 o'clock hours away from the 3 o'clock position of the patient's left eye. 1% non-preserved Lidocaine was then injected into the anterior chamber for anesthesia. A 2.0 mm keratotome blade was then used to make a shelved clear corneal incision at the 3 o'clock position of the left eye. Amvisc was injected into the anterior chamber and a cystotome and Utrata forceps were used to perform a curvilinear capsulorrhexis. BSS on a hydrodissection cannula was used to hydrodissect the lens nucleus away from the capsular bag. The phacoemulsification handpiece was then used in a stop and chop fashion to remove the lens nucleus. The irrigation and aspiration handpiece was then used to remove the residual cortical material. Amvisc was injected into the capsular bag and anterior chamber and a Bausch & Lomb MX60 20.0 Diopter intraocular lens was injected into the capsular bag. Irrigation and aspiration handpiece was used to remove the residual viscoelastic material. The wounds were hydrated and noted to be watertight. The wire lid speculum was removed from the eye. Vigamox, Brimonidine, and TobraDex ointment were placed on the eye and it was shielded. It should be noted that EndoCoat was used extensively during the case to protect the cornea endothelium. DISPOSITION: The patient tolerated the procedure well and was wheeled to the post anesthesia care unit in stable condition. I attest to the content of the Intraoperative Record and any orders documented therein. Any exceptions are noted below. I attest to the content of the Intraoperative Record and any orders documented therein. Any exceptions are noted below.
--- NOTE | 2017-05-10 10:33 | Discharge Instructions-SurgCtr ---
Discharge Instructions Date of Service May 10, 2017. Visit Reason for Visit: Cataract Left Eye Discharge Discharge Diagnosis / Problem: cataract left eye Discharge Goals Goal(s): Improve function Medications Stopped Medications Name(s): Only took instructed medications this morning. Activity Recommendations Activity Limitations: per Instructions/Follow-up section Lifting Limitations: no more than 5 pounds Anesthesia . Post Anesthesia Instructions: If you have had General Anesthesia or IV Sedation: * Do not drive today. * Resume driving when surgeon permits. * Do not make important decisions or sign legal documents today. * Call surgeon for: 1. Temperature elevations greater than 101 degrees F. 2. Uncontrollable pain. 3. Excessive bleeding. 4. Persistent nausea and vomiting. 5. Medication intolerance (nausea, vomiting or rash). * For nausea and vomiting use only clear liquids such as: tea, soda, bouillon until nausea subsides, then gradually increase diet as tolerated. * If you have any concerns or questions, call your surgeon's office. If physician is unavailable and it is an emergency, call 911 or go to the nearest emergency room. . Instructions / Follow-Up Instructions / Follow-Up ACTIVITY RECOMMENDATIONS: * Light activities * You may walk outside, read, watch television. * Mild irritation and blurred vision are common for the first few days, redness around the white part of the eye is common. MEDICATIONS: Resume previous medications unless instructed otherwise by your surgeon. Eye drops (today and tomorrow): Cipro - one drop in operative eye every 2 hours while awake Prednisolone 1% - one drop in operative eye every 2 hours while awake SPECIAL CARE INSTRUCTIONS: * If any problems or concerns, please call Dr. Ruvalcaba's office at . * Keep plastic shield taped over eye to sleep at night. * Keep plastic shield taped over eye except to administer eye drops. * Keep plastic shield on until office visit the following day. FOLLOW UP VISIT: Follow-up with Dr. Ruvalcaba in the [place] office as scheduled. If not already scheduled, please call the office at . Diet Recommendations Home Diet: resume previous diet Procedures Procedures Performed: Left Cataract Phacoemulsification With Intraocular Lens Implant Pending Studies Studies pending at discharge: no Medical Emergencies . Who to Call and When: Medical Emergencies: If at any time you feel your situation is an emergency, please call 911 immediately. . Non-Emergent Contact Non-Emergency issues call your: Manufacturing Engineer Assembly . . "Provider Documentation" section prepared by Prateek Ruvalcaba. .
[2017-05-10 10:34] VITALS: TEMP 37.7
[2017-05-10 10:54] VITALS: BP 146/96; PULSE 65; O2SAT 96
--- NOTE | 2017-05-10 11:09 | Anesthesiology Progress Note ---
Anesthesia Post Op Note Date & Time May 10, 2017 at 11:08 Vital Signs Pain Intensity: 0 Vital Signs Past 12 Hours Date Time Temp Pulse Resp B/P (MAP) Pulse Ox O2 Delivery O2 Flow Rate FiO2 05/10/17 10:54 65 16 146/96 (113) 96 Nasal Cannula 3 05/10/17 10:34 37.7 83 16 132/90 (104) 95 Nasal Cannula 3 05/10/17 09:06 36.3 80 18 133/91 (105) 96 Room Air Notes Mental Status: alert / awake / arousable, participated in evaluation Nausea / Vomiting: adequately controlled Pain: adequately controlled Airway Patency, RR, SpO2: stable & adequate BP & HR: stable & adequate Hydration State: stable & adequate Anesthetic Complications: no major complications apparent
--- NOTE | 2017-05-10 11:15 | Anesthesiology Progress Note ---
Anesthesia Post Op Note Date & Time May 10, 2017 at 11:15 Vital Signs Pain Intensity: 0 Vital Signs Past 12 Hours Date Time Temp Pulse Resp B/P (MAP) Pulse Ox O2 Delivery O2 Flow Rate FiO2 05/10/17 10:54 65 16 146/96 (113) 96 Nasal Cannula 3 05/10/17 10:34 37.7 83 16 132/90 (104) 95 Nasal Cannula 3 05/10/17 09:06 36.3 80 18 133/91 (105) 96 Room Air Notes Mental Status: alert / awake / arousable, participated in evaluation Nausea / Vomiting: adequately controlled Pain: adequately controlled Airway Patency, RR, SpO2: stable & adequate BP & HR: stable & adequate Hydration State: stable & adequate Anesthetic Complications: no major complications apparent
== END | disposition home or self-care (01) ==
LOC: X.SURG 08:46
PROVIDERS: ATTEND Ophthalmology
DX: H25.12 Age-related nuclear cataract, left eye (principal); I10 Essential (primary) hypertension; I50.9 Heart failure, unspecified; M19.90 Unspecified osteoarthritis, unspecified site; M10.9 Gout, unspecified; G62.9 Polyneuropathy, unspecified; K21.9 Gastro-esophageal reflux disease without esophagitis; G47.30 Sleep apnea, unspecified; Z90.89 Acquired absence of other organs; Z90.49 Acquired absence of other specified parts of digestive tract

== ENCOUNTER → 2017-05-31 | Day surgery (SDC) | payer OTHER ==
[2017-05-20 10:58] VITALS: Ht 182.9 cm; Wt 136.3 kg
[~2017-05-31] VITALS: Ht 182.9 cm; Wt 136.3 kg
[~2017-05-31] MED LIST changes: -CYCLOPENTOLATE HCL 1% OP SOLN PER DROP CHARGE OPL SCH; +FENTANYL CITRATE INJ 50 MCG/1 ML 2 ML VIAL ONE; -KETOROLAC 0.5% OP SOLN PER DROP CHARGE OPL SCH; -LIDOCAINE 4% OP SOLN DROP CHARGE OPL SCH; +LIDOCAINE 4% OP SOLN DROP CHARGE OPR SCH; -MOXIFLOXACIN OPH SOLN PER DROP CHARGE OPL SCH; +ONDANSETRON INJ 2 MG/ML 2 ML VIAL IV PRN; -PHENYLEPHRINE HCL 2.5% OP SOLN PER DROP CHARGE OPL SCH; -PROPARACAINE 0.5% OP SOLN PER DROP CHARGE OPL SCH; +PROPARACAINE 0.5% OP SOLN PER DROP CHARGE OPR SCH; +TOPI200T14 PO; -TROPICAMIDE 1% OP SOLN PER DROP CHARGE OPL SCH
[2017-05-31] MEDS: PHENYLEPHRINE HCL 2.5% OP SOLN PER DROP CHARGE OPR SCH ×2 (10:09→10:15)
[2017-05-31] MEDS: TROPICAMIDE 1% OP SOLN PER DROP CHARGE OPR SCH ×2 (10:10→10:16)
[2017-05-31] MEDS: CYCLOPENTOLATE HCL 1% OP SOLN PER DROP CHARGE OPR SCH ×2 (10:11→10:17)
[2017-05-31] MEDS: KETOROLAC 0.5% OP SOLN PER DROP CHARGE OPR SCH ×2 (10:12→10:18)
[2017-05-31] MEDS: MOXIFLOXACIN OPH SOLN PER DROP CHARGE OPR SCH ×2 (10:14→10:28)
--- NOTE | 2017-05-31 11:03 | [facility] Operative Report ---
Operative Report Operative Date May 31, 2017. Pre-Operative Diagnosis Right Eye Cataract Post-Operative Diagnosis same Procedure(s) Performed Right Cataract Phacoemulsification With Intraocular Lens Implant Surgeon Dr. Eve Ruvalcaba Boilermaker Helper Surgeon(s) 0 Estimated Blood Loss 0 Findings cataract right eye Fluids see anesthesia record Specimens none Drains None Anesthesia Type MAC Complication(s) none Disposition no Recovery Room / PACU Indications decreased vision right eye Description of Procedure After informed consent was obtained in the holding area the patient was wheeled back to the operating room where cardiac monitoring leads and oxygen by nasal cannula was administered by Anesthesia. Gentle IV sedation was given, and the patient's right eye was prepped and draped in usual sterile fashion. A wire lid speculum was placed into the right eye and the operating microscope was swung into position. Using 0.12 forceps and a Supersharp blade a paracentesis port was made 2 o'clock hours away from the 9 o'clock position of the patient's right eye. 1% non-preserved Lidocaine was then injected into the anterior chamber for anesthesia. Flomax mix was injected into the anterior chamber. A 2.0 mm keratotome blade was then used to make a shelved clear corneal incision at the 9 o'clock position of the right eye. Amvisc was injected into the anterior chamber and a cystotome and Utrata forceps were used to perform a curvilinear capsulorrhexis. BSS on a hydrodissection cannula was used to hydrodissect the lens nucleus away from the capsular bag. The phacoemulsification handpiece was then used in a stop and chop fashion to remove the lens nucleus. The irrigation and aspiration handpiece was then used to remove the residual cortical material. Amvisc was injected into the capsular bag and anterior chamber and a Bausch & Lomb MX60 19.5 Diopter intraocular lens was injected into the capsular bag. Irrigation and aspiration handpiece was used to remove the residual viscoelastic material. The wounds were hydrated and noted to be watertight. The wire lid speculum was removed from the eye. Vigamox, Brimonidine, and TobraDex ointment were placed on the eye and it was shielded. It should be noted that EndoCoat was used extensively during the case to protect the cornea endothelium. DISPOSITION: The patient tolerated the procedure well and was wheeled to the post anesthesia care unit in stable condition. I attest to the content of the Intraoperative Record and any orders documented therein. Any exceptions are noted below. I attest to the content of the Intraoperative Record and any orders documented therein. Any exceptions are noted below.
--- NOTE | 2017-05-31 11:04 | Discharge Instructions-SurgCtr ---
Discharge Instructions Date of Service May 31, 2017. Visit Reason for Visit: Cataract Right Eye Discharge Discharge Diagnosis / Problem: cataract right eye Discharge Goals Goal(s): Improve function Activity Recommendations Activity Limitations: per Instructions/Follow-up section Lifting Limitations: no more than 5 pounds Anesthesia . Post Anesthesia Instructions: If you have had General Anesthesia or IV Sedation: * Do not drive today. * Resume driving when surgeon permits. * Do not make important decisions or sign legal documents today. * Call surgeon for: 1. Temperature elevations greater than 101 degrees F. 2. Uncontrollable pain. 3. Excessive bleeding. 4. Persistent nausea and vomiting. 5. Medication intolerance (nausea, vomiting or rash). * For nausea and vomiting use only clear liquids such as: tea, soda, bouillon until nausea subsides, then gradually increase diet as tolerated. * If you have any concerns or questions, call your surgeon's office. If physician is unavailable and it is an emergency, call 911 or go to the nearest emergency room. . Instructions / Follow-Up Instructions / Follow-Up ACTIVITY RECOMMENDATIONS: * Light activities * You may walk outside, read, watch television. * Mild irritation and blurred vision are common for the first few days, redness around the white part of the eye is common. MEDICATIONS: Resume previous medications unless instructed otherwise by your surgeon. Eye drops (today and tomorrow): Cipro - one drop in operative eye every 2 hours while awake Prednisolone 1% - one drop in operative eye every 2 hours while awake SPECIAL CARE INSTRUCTIONS: * If any problems or concerns, please call Dr. Ruvalcaba's office at . * Keep plastic shield taped over eye to sleep at night. * Keep plastic shield taped over eye except to administer eye drops. * Keep plastic shield on until office visit the following day. FOLLOW UP VISIT: Follow-up with Dr. Ruvalcaba in the [place] office as scheduled. If not already scheduled, please call the office at . Diet Recommendations Home Diet: resume previous diet Procedures Procedures Performed: Right Cataract Phacoemulsification With Intraocular Lens Implant Pending Studies Studies pending at discharge: no Medical Emergencies . Who to Call and When: Medical Emergencies: If at any time you feel your situation is an emergency, please call 911 immediately. . Non-Emergent Contact Non-Emergency issues call your: Senior Communications Specialist . . "Provider Documentation" section prepared by Prateek Ruvalcaba. .
[2017-05-31 11:05] VITALS: TEMP 37.3
--- NOTE | 2017-05-31 11:24 | Anesthesia Progress Nt - [facility] ---
Anesthesia Post Op Note Date & Time May 31, 2017 at 11:24 Vital Signs Pain Intensity: 0 Vital Signs Past 12 Hours Date Time Temp Pulse Resp B/P (MAP) Pulse Ox O2 Delivery O2 Flow Rate FiO2 05/31/17 11:05 37.3 76 16 157/86 (109) 95 Room Air 05/31/17 09:59 36.5 75 24 163/91 (115) 96 Nasal Cannula 3 Notes Mental Status: alert / awake / arousable, participated in evaluation Pt Amnestic to Procedure: Yes Nausea / Vomiting: adequately controlled Pain: adequately controlled Airway Patency, RR, SpO2: stable & adequate BP & HR: stable & adequate Hydration State: stable & adequate Anesthetic Complications: no major complications apparent
[2017-05-31 11:34] VITALS: BP 166/98; PULSE 60; O2SAT 97
== END | disposition home or self-care (01) ==
LOC: X.SURG 09:43
PROVIDERS: ATTEND Ophthalmology
DX: H25.11 Age-related nuclear cataract, right eye (principal); I11.0 Hypertensive heart disease with heart failure; I50.9 Heart failure, unspecified; M19.90 Unspecified osteoarthritis, unspecified site; M10.9 Gout, unspecified; G62.9 Polyneuropathy, unspecified; K21.9 Gastro-esophageal reflux disease without esophagitis; G47.30 Sleep apnea, unspecified; Z90.49 Acquired absence of other specified parts of digestive tract

== ENCOUNTER → 2017-07-09 | Outpatient (CLI) | payer OTHER ==
[~2017-07-09] VITALS: Ht 182.9 cm; Wt 138.7 kg
[~2017-07-09] MED LIST changes: -500ML BSS 0.3ML EPI 1:1000PF IRRIG ONE; -ACETAMINOPHEN 325 MG TAB PO PRN; -AMVISC PLUS 0.8ML SYRINGE INT OCU ONE; -ATROPINE SULFATE 0.1 MG/ML 5ML SYR IV PRN; -BRIMONIDINE TART 0.2% OP SOLN PER DROP CHARGE ONE; -BSS FLUSH ONE; -ENDOCOAT 0.85ML SYRINGE INT OCU ONE; -EpHEDrine SULFATE INJ 50 MG/ML AMP IV PRN; -EpINEphrine INJ 1MG/ML AMP 1 MG/ML AMP ONE; -FENTANYL CITRATE INJ 50 MCG/1 ML 2 ML VIAL ONE; -LACTATED RINGER'S 1000ML 500 ML IV SCH; -LIDOCAINE 4% OP SOLN DROP CHARGE ONE; -LIDOCAINE 4% OP SOLN DROP CHARGE OPR SCH; -LIDOCAINE HCL 1% MPF 2 ML VIAL ONE; -MIDAZOLAM HCL 1 MG/ML 2ML VIAL ONE; -MIX: 3ML BSS AND 1ML EPI(PF) TOP ONE; -MOXIFLOXACIN OPH SOLN PER DROP CHARGE ONE; -ONDANSETRON INJ 2 MG/ML 2 ML VIAL IV PRN; -POVIDONE-IODINE OP SOLN 30 ML BTL ONE; -PROPARACAINE 0.5% OP SOLN PER DROP CHARGE OPR SCH; -TOBRAMYCIN/DEXAMETHASONE OPH OINT PER APPLN CHARGE ONE
[2017-07-09 15:39] VITALS: BP 146/88; PULSE 69; Ht 182.9 cm; Wt 138.7 kg
== END ==
LOC: C.NEUR 15:23
PROVIDERS: ATTEND Internal Medicine Pulmonary Disease
DX: G47.33 Obstructive sleep apnea (adult) (pediatric) (principal); J30.9 Allergic rhinitis, unspecified; H10.10 Acute atopic conjunctivitis, unspecified eye

== ENCOUNTER 2017-07-25 16:39 | Emergency (ER) | payer OTHER ==
[~2017-07-25] VITALS: Ht 182.9 cm; Wt 137.5 kg
[2017-07-25 16:48] VITALS: TEMP 36.8; Ht 182.9 cm; Wt 137.5 kg
[2017-07-25] MEDS ORDERED: MoRPHine SULFATE 4 MG/ML 1 ML CARP\\VIAL IV STA ×2 (17:15→19:13)
[2017-07-25] MEDS ORDERED: SODIUM CHLORIDE 0.9% 250ML 250 ML IV STA (17:15)
[2017-07-25 17:26] LABS: BASO % 0.4 %; BASO ABS # 0.03 K/uL (0-0.2); EOS % 2.1 %; EOS ABS # 0.17 K/uL (0-0.5); HEMATOCRIT 42.9 % (42-52); HEMOGLOBIN 14.4 g/dL (14.0-18.0); IG# 0.05 K/uL (0.00-0.02); LYMPH % 32.3 %; LYMPH ABS # 2.58 K/uL (1.2-3.4); MEAN CELL VOLUME 88.5 fL (80-100); MEAN CORPUSCULAR HEMOGLOBIN 29.7 pg (25-34); MEAN CORPUSCULAR HGB CONC 33.6 g/dl (32-36); MEAN PLATELET VOLUME 9.9 fL (7.4-10.4); MONO % 11.8 %; MONO ABS # 0.94 K/uL (0.11-0.59); NEUT % 52.8 %; NEUT ABS # 4.23 K/uL (1.4-6.5); PLATELET COUNT 133 K/uL (130-400); RED CELL DISTRIBUTION WIDTH CV 14.5 % (11.5-14.5)
[2017-07-25] MEDS ORDERED: DIFL500T PO (17:30)
[2017-07-25] MEDS ORDERED: OPTIRAY 320 IV PRN (17:30)
[2017-07-25 17:54] LABS: ALBUMIN 3.5 gm/dl (3.4-5.0); CALCIUM 8.6 mg/dl (8.5-10.1); TOTAL PROTEIN 7.4 gm/dl (6.4-8.2)
[2017-07-25 18:10] LABS: CREATININE 1.31 mg/dl (0.60-1.40)
[2017-07-25 18:23] LABS: POTASSIUM 3.8 mmol/L (3.5-5.1)
--- NOTE | 2017-07-25 18:44 | EMERGENCY ROOM VISIT NOTE ---
ED Visit Note First contact with patient: 16:52 CHIEF COMPLAINT: Left lower abdominal and back pain HISTORY OF PRESENTING ILLNESS: This is a 66-year-old male with past medical history significant for congestive heart failure, hypertension, diabetes, diverticulitis, who presents to the emergency department with complaint of left lower abdominal pain and lower back pain that started yesterday. Patient states that he has been treated by his doctor for a pinched nerve in the neck and was recently started on baclofen pills 2 days ago, which he has been taking. He states that he began having some lower abdominal pain yesterday, and did have a few episodes of diarrhea recently, and has also been having some pain in his lower back. He states that he spoke with his pharmacist regarding the baclofen, who told him that this could cause his symptoms. The patient states that his back pain is actually been improving today, but he is still having a lot of pain in his lower abdomen which is gotten worse. He describes the pain is constant, cramping and achy, worse with moving, better with rest, 8/ 10. He has not taken any medications for his symptoms. He denies any numbness or weakness of the legs or difficulty walking. He denies any bowel or bladder dysfunction. He denies any saddle paresthesias. He denies any recent fevers or chills, nausea, vomiting, bloody or black stools, chest pain, shortness of breath, dizziness or syncope, urinary symptoms, or unusual rash. He denies any recent falls. He is on 3 L of oxygen at home for history of CHF. He reports a history of a hiatal hernia. He also has had abdominal surgeries for appendectomy and cholecystectomy. He also reports a history of kidney stones. REVIEW OF SYSTEMS: A complete 10 point review of systems was reviewed with the patient with pertinent positives and negatives as per history of present illness. All else were negative. PAST MEDICAL HISTORY: Reviewed in chart. SOCIAL HISTORY: Lives at home. Denies tobacco use. ALLERGIES: Reviewed in chart. PHYSICAL EXAM: CONSTITUTIONAL: Pleasant and cooperative. No acute distress, but appears to be uncomfortable and in pain. Well-hydrated, well appearing and well nourished. HEENT: Normocephalic, atraumatic. Pupils equal, round and reactive to light, EOMI. TMs normal. Pharynx normal. Moist mucous membranes. NECK: Supple, full active range of motion without discomfort. RESPIRATORY: Clear to auscultation bilaterally with no wheezing, crackles, rhonchi or stridor. Equal expansion bilaterally. CARDIOVASCULAR: Regular rate and rhythm with no murmurs, rubs or gallops. Normal peripheral perfusion. No edema. GASTROINTESTINAL: Soft, tender to palpation the left lower quadrant and left flank, nondistended. No CVA tenderness bilaterally. No palpable masses or HSM. Bowel sounds present in all quadrants. BACK: No midline tenderness of the thoracic or lumbar spine. No paraspinous muscle tenderness or spasm noted. Full range of motion of the back. Negative straight leg raise bilaterally. MUSCULOSKELETAL: Full range of motion of all joints without discomfort. Deep tendon reflexes of the lower extremities 2+ and equal bilaterally. INTEGUMENTARY: No rash or other significant dermatologic conditions noted. NEUROLOGIC: Alert and oriented X 4 with normal affect. 5/5 strength in all 4 extremities. Sensation intact to light touch in all 4 extremities. No focal neurologic deficits noted. Normal speech. Normal gait observed. ED COURSE AND MEDICAL DECISION MAKING: CC: Patient presenting with complaint of left lower abdominal/flank/back pain DIFFERENTIAL DIAGNOSIS: Includes, but not limited to UTI, pyelonephritis, ureteral stone, diverticulitis, pancreatitis, lumbar strain/sprain, SBO, among others. INTERPRETATION OF LABS: No leukocytosis, no anemia, no significant electrolyte abnormalities, normal renal function, normal liver enzymes and lipase. UA negative. IMAGING: ABDOMEN AND PELVIS CT WITH IV CONTRAST CT DOSE: 2006.74 mGy.cm HISTORY: Acute lower abdominal pain eval diverticulitis, obstructing stone TECHNIQUE: Multiaxial CT images of the abdomen and pelvis were performed following the use of intravenous contrast. A dose lowering technique was utilized adhering to the principles of ALARA. COMPARISON STUDY: CT abdomen and pelvis 11/13/2016. FINDINGS: Linear subsegmental bibasilar opacities suggest atelectasis or scarring. No pneumatosis or pneumoperitoneum. Imaged inferior cardiac chambers are unremarkable. Prior cholecystectomy. Mild intrahepatic and extrahepatic biliary ductal dilation is likely secondary to postcholecystectomy state. Spleen, pancreas and adrenal glands are within normal limits. Mild nonspecific bilateral perinephric stranding. There are at least 2 nonobstructing calculi of the inferior pole right kidney measuring up to 2 mm. No ureteral calculi or obstructive uropathy. Calcifications of the central prostate. Small fat filled bilateral inguinal hernias. Moderate atherosclerosis and tortuosity of the abdominal aorta with mild aneurysmal dilation of the aorta measuring 3.1 x 2.6 cm. No bulky adenopathy. Large hiatal hernia with partially intrathoracic stomach within the right hemithorax. No bowel obstruction. There is mild to moderate wall thickening of the proximal sigmoid colon at the descending sigmoid junction with surrounding inflammatory stranding centered about a diverticulum seen on image 328 of series 3 compatible with acute sigmoid diverticulitis. No evidence of perforation or drainable fluid collection. Moderate stool volume about the right hemicolon. Small fat filled periumbilical hernia diastases 1.6 cm. Bones appear intact. Multilevel facet arthrosis and endplate spurring. IMPRESSION: 1. Findings compatible with acute uncomplicated diverticulitis of the descending sigmoid colon junction without evidence of perforation or drainable fluid collection. 2. Nonobstructing right-sided nephrolithiasis. 3. Mild fusiform aneurysmal dilation of the infrarenal abdominal aorta, 3.1 cm. 4. Large hiatal hernia. 5. Prior cholecystectomy. MEDICATION RECONCILIATION: I attest that I have personally reviewed the patient 's current medication list. INITIAL VITAL SIGNS REVIEW: I reviewed the patient's initial vital signs and interpret them as follows: T: Afebrile; BP: Hypertensive; HR: Within normal limits; RR: Within normal limits; Pulse Ox: Within normal limits on 3 L nasal cannula. Blood pressure screening: The patient was found to have an elevated blood pressure and was referred to their primary doctor for recheck and further treatment. SUMMARY: Patient was evaluated at bedside, history and physical exam performed. Patient is alert and oriented, in no acute distress, but does appear to be in pain, resting in the stretcher. Patient is tender to palpation of the left lower quadrant and left flank. No CVA tenderness. No midline tenderness of the spine. He does not appear to be dehydrated. Orders were placed at bedside for labs, UA, IV morphine for pain, small bolus IV fluids for renal protection, CT abdomen/pelvis with IV contrast to evaluate for left flank/abdominal pain. Patient discussed with Dr. Cunningham, who agrees with my assessment and plan. Labs and imaging reviewed as above, consistent with acute diverticulitis. No comp occasions of abscess or perforation noted on CT. Patient is afebrile, with no leukocytosis, tolerating PO, and pain is improved after IV morphine. Admission was offered to the patient, however he states that he prefers to be discharged home. Patient reassessed multiple times throughout ED stay, he remains stable and well -appearing, and his pain has been well controlled. Patient was given his first dose of Augmentin, and Rx was sent to the pharmacy. The patient has prescribed Percocet that he was instructed to use as needed for his abdominal pain. Patient was updated on all results and plan for discharge, he was encouraged to follow very closely with his primary care provider. Patient was also given strict return precautions should his symptoms worsen, he verbalized understanding. Patient was discharged home in stable condition and ambulatory. Problem List Medical Problems: (1) Angioedema Status: Resolved (2) Diab Lynne Wo Compl, Type Ii Or Unspec Type, Not Uncntrld Permanent Comment: Borderline, previously on medications, but now diet controlled. Status: Chronic (3) Diverticulitis Colon (W/O Ment Of Hemorrhage) Status: Resolved (4) Diverticulosis Colon (W/O Ment Of Hemorrhage) Status: Chronic (5) DVT (deep venous thrombosis) Status: Resolved (6) Hyperlipidemia Nec/Nos Status: Chronic (7) Hypertension Nos Status: Chronic (8) Obesity, Nos Status: Chronic (9) Obstructive Sleep Apnea (Adult) (Pediatric) Status: Chronic Current/Historical Medications Scheduled Allopurinol (Zyloprim), 1 TAB PO QAM Amlodipine (Norvasc), 5 MG PO QAM Amoxicillin & Pot Clavulanate (Augmentin 875-125 mg), 1 TAB PO BID Ascorbic Acid (Vitamin C 500 mg), 1 TAB PO QAM Aspirin (Aspirin Chewable), 81 MG PO QAM Atorvastatin (Lipitor), 40 MG PO QAM Carvedilol (Coreg), 12.5 MG PO BID Diflunisal (Dolobid), 500 MG PO BID Etodolac (Etodolac), 1 TAB PO BID Ferrous Sulfate (Iron), 1 TAB PO BID Fexofenadine Hcl (Marifer Allergy), 1 TAB PO HS Home O2 Therapy (Oxygen), 3 LITERS NA CONT Nortriptyline HCl (Nortriptyline HCl), 3 CAP PO HS Omeprazole (Prilosec), 20 MG PO QAM Ranitidine (Zantac), 300 MG PO HS Spironolactone (Aldactone), 0.5 TAB PO BID Sulfasalazine (Sulfazine Ec), 1 TAB PO BID Tamsulosin Hcl (Flomax), 2 CAP PO HS Topiramate (Topamax), 100 MG PO QAM Topiramate (Topamax), 200 MG PO HS Scheduled PRN Albuterol Hfa (Ventolin Hfa), 2-4 PUFFS INH Q6H PRN for Shortness of Breath Oxycodone/Acetaminophen 5MG/325MG (Percocet 5MG/325MG), 1 TABLET PO Q6H PRN for Pain Torsemide (Demadex), 10 MG PO QAM PRN for WILL INCREASE DOSE FOR FLUID Allergies Coded Allergies: Lisinopril (Verified Allergy, Severe, THROAT SWELLING; HYPERTENSION, ) Ibuprofen (Verified Allergy, Mild, NAUSEA/VOMITING/NERVOUSNESS/MOUTH WATER , 07/25/17) Vital Signs Date Time Temp Pulse Resp B/P (MAP) Pulse Ox O2 Delivery O2 Flow Rate FiO2 07/25/17 20:33 71 20 149/100 93 07/25/17 18:12 71 20 157/101 91 07/25/17 16:48 36.8 74 20 177/98 94 Room Air Laboratory Results 07/25/17 17:10 Red Blood Count 4.85, Mean Corpuscular Volume 88.5, Mean Corpuscular Hemoglobin 29.7, Mean Corpuscular Hemoglobin Concent 33.6, Mean Platelet Volume 9.9, Neutrophils (%) (Auto) 52.8, Lymphocytes (%) (Auto) 32.3, Monocytes (%) (Auto) 11.8, Eosinophils (%) (Auto) 2.1, Basophils (%) (Auto) 0.4, Neutrophils # (Auto ) 4.23, Lymphocytes # (Auto) 2.58, Monocytes # (Auto) 0.94, Eosinophils # (Auto ) 0.17, Basophils # (Auto) 0.03 07/25/17 17:10 07/25/17 17:58 Test 07/25/17 17:10 07/25/17 17:58 07/25/17 18:54 White Blood Count 8.00 K/uL (4.8-10.8) Red Blood Count 4.85 M/uL (4.7-6.1) Hemoglobin 14.4 g/dL (14.0-18.0) Hematocrit 42.9 % (42-52) Mean Corpuscular Volume 88.5 fL (80-100) Mean Corpuscular Hemoglobin 29.7 pg (25-34) Mean Corpuscular Hemoglobin Concent 33.6 g/dl (32-36) Platelet Count 133 K/uL (130-400) Mean Platelet Volume 9.9 fL (7.4-10.4) Neutrophils (%) (Auto) 52.8 % Lymphocytes (%) (Auto) 32.3 % Monocytes (%) (Auto) 11.8 % Eosinophils (%) (Auto) 2.1 % Basophils (%) (Auto) 0.4 % Neutrophils # (Auto) 4.23 K/uL (1.4-6.5) Lymphocytes # (Auto) 2.58 K/uL (1.2-3.4) Monocytes # (Auto) 0.94 K/uL (0.11-0.59) Eosinophils # (Auto) 0.17 K/uL (0-0.5) Basophils # (Auto) 0.03 K/uL (0-0.2) RDW Standard Deviation 47.0 fL (36.4-46.3) RDW Coefficient of Variation 14.5 % (11.5-14.5) Immature Granulocyte % (Auto) 0.6 % Immature Granulocyte # (Auto) 0.05 K/uL (0.00-0.02) Anion Gap 8.0 mmol/L (3-11) Est Creatinine Clear Calc Drug Dose 78.6 ml/min Estimated GFR () 64.8 Estimated GFR (Non- 55.9 BUN/Creatinine Ratio 12.7 (10-20) Calcium Level 8.6 mg/dl (8.5-10.1) Total Bilirubin 0.6 mg/dl (0.2-1) Alanine Aminotransferase (ALT/SGPT) 21 U/L (12-78) Alkaline Phosphatase 120 U/L (45-117) Total Protein 7.4 gm/dl (6.4-8.2) Albumin 3.5 gm/dl (3.4-5.0) Lipase 95 U/L (73-393) Direct Bilirubin 0.2 mg/dl (0-0.2) Aspartate Amino Transf (AST/SGOT) 18 U/L (15-37) Urine Color DK YELLOW Urine Appearance CLEAR (CLEAR) Urine pH 5.5 (4.5-7.5) Urine Specific Neeses 1.038 (1.000-1.030) Urine Protein NEG (NEG) Urine Glucose (UA) NEG (NEG) Urine Ketones NEG (NEG) Urine Occult Blood NEG (NEG) Urine Nitrite NEG (NEG) Urine Bilirubin NEG (NEG) Urine Urobilinogen NEG (NEG) Urine Leukocyte Esterase NEG (NEG) Medications Administered Medications (Trade) Dose Ordered Sig/Christiano Route Start Time Stop Time Status Last Admin Dose Admin Morphine Sulfate (MoRPHine SULFATE INJ) 4 mg NOW STAT IV 07/25/17 17:15 07/25/17 17:20 DC 07/25/17 17:27 4 MG Sodium Chloride 250 ml @ 999 mls/hr Q16M STAT IV 07/25/17 17:15 07/25/17 17:30 DC 07/25/17 17:15 999 MLS/HR Morphine Sulfate (MoRPHine SULFATE INJ) 4 mg NOW STAT IV 07/25/17 19:13 07/25/17 19:14 DC 07/25/17 19:13 4 MG Amoxicillin/ Clavulanate Potassium (Augmentin Tab) 875 mg ONE ONCE PO 07/25/17 20:15 07/25/17 20:16 DC 07/25/17 20:33 875 MG Oxycodone/ Acetaminophen (Percocet 5-325mg Tab) 1 tab NOW ONCE PO 07/25/17 20:15 07/25/17 20:16 DC 07/25/17 20:32 1 TAB Departure Information Impression Primary Impression: Acute diverticulitis Dispostion Home / Self-Care Condition GOOD Prescriptions Amoxicillin & Pot Clavulanate (Augmentin 875-125 mg) 1 Tab Tab 1 TAB PO BID for 10 Days, #20 TAB Prov: Lilia Abebe CRNP 07/25/17 Referrals Myranda Lu DO (PCP) Patient Instructions ED Diverticulitis, [facility] Additional Instructions You have been treated in the Emergency Department for your abdominal pain. You were found to have acute diverticulitis of your intestines. You were prescribed Augmentin to be taken twice a day for 10 days. This is an antibiotic to treat your diverticulitis. All antibiotics have the potential to cause diarrhea, he can help prevent this by eating yogurt daily or taking a daily probiotic. Stop this medication and contact a medical provider if you were to develop any significant adverse side effects including: wheezing, shortness of breath, passing out, vomiting, or a diffuse rash. Always take antibiotics as directed and COMPLETE the ENTIRE course regardless of the improvement of your symptoms. You may use your own prescribed Percocet as needed for pain. Take as prescribed. Drink plenty of fluids to stay well hydrated. Please follow-up with your Primary Care Provider in 2-3 days for reevaluation. Return to the emergency department for severe worsening abdominal or back pain, worsening nausea/vomiting, vomiting blood, blood in your stool or urine, fevers > 101.5, severe dizziness or passing out, or any other concerns.
--- NOTE | 2017-07-25 18:57 | DIAGNOSTIC IMAGING REPORT ---
ABDOMEN AND PELVIS CT WITH IV CONTRAST CT DOSE: 2006.74 mGy.cm HISTORY: Acute lower abdominal pain eval diverticulitis, obstructing stone TECHNIQUE: Multiaxial CT images of the abdomen and pelvis were performed following the use of intravenous contrast. A dose lowering technique was utilized adhering to the principles of ALARA. COMPARISON STUDY: CT abdomen and pelvis 11/13/2016. FINDINGS: Linear subsegmental bibasilar opacities suggest atelectasis or scarring. No pneumatosis or pneumoperitoneum. Imaged inferior cardiac chambers are unremarkable. Prior cholecystectomy. Mild intrahepatic and extrahepatic biliary ductal dilation is likely secondary to postcholecystectomy state. Spleen, pancreas and adrenal glands are within normal limits. Mild nonspecific bilateral perinephric stranding. There are at least 2 nonobstructing calculi of the inferior pole right kidney measuring up to 2 mm. No ureteral calculi or obstructive uropathy. Calcifications of the central prostate. Small fat filled bilateral inguinal hernias. Moderate atherosclerosis and tortuosity of the abdominal aorta with mild aneurysmal dilation of the aorta measuring 3.1 x 2.6 cm. No bulky adenopathy. Large hiatal hernia with partially intrathoracic stomach within the right hemithorax. No bowel obstruction. There is mild to moderate wall thickening of the proximal sigmoid colon at the descending sigmoid junction with surrounding inflammatory stranding centered about a diverticulum seen on image 328 of series 3 compatible with acute sigmoid diverticulitis. No evidence of perforation or drainable fluid collection. Moderate stool volume about the right hemicolon. Small fat filled periumbilical hernia diastases 1.6 cm. Bones appear intact. Multilevel facet arthrosis and endplate spurring. IMPRESSION: 1. Findings compatible with acute uncomplicated diverticulitis of the descending sigmoid colon junction without evidence of perforation or drainable fluid collection. 2. Nonobstructing right-sided nephrolithiasis. 3. Mild fusiform aneurysmal dilation of the infrarenal abdominal aorta, 3.1 cm. 4. Large hiatal hernia. 5. Prior cholecystectomy. Electronically signed by: Patrice Rivas M.D. 07/25/2017 6:55 PM Dictated Date/Time: 07/25/2017 6:50 PM
[2017-07-25] MEDS ORDERED: AMOX875T PO (20:10)
[2017-07-25] MEDS ORDERED: OXYCODONE/ACETAMINOPHEN 5-325 TAB PO ONE (20:15)
[2017-07-25] MEDS ORDERED: AMOXICILLIN/CLAVULANATE TAB 875 MG TAB PO ONE (20:15)
[2017-07-25 20:33] VITALS: BP 149/100; PULSE 71; O2SAT 93
--- NOTE | 2017-07-25 20:59 | EMERGENCY ROOM VISIT NOTE ---
ED Visit Note First contact with patient: 16:52 I have personally evaluated this patient examined her and reviewed the pertinent labs and data. I have discussed the case with Lilia Gonsalez NP and agree with the plan. Please refer to the PA note. This patient comes in complaining of left lower abdominal pain. He has a history of diverticulitis. On my exam he has some mild tenderness but no peritonitis. Has received pain medicine feels good. His CAT scan shows diverticulitis without abscess. I talked him at length and given his other medical problems, I told him we could keep him in the hospital for IV antibiotics and observation he strongly desires to go home. I think this is reasonable with his examine and he looks well at present. We will start him on antibiotics. I talked the patient is length and encouraged him to return if: he has increasing pain, fever chills, worsening of symptoms, any new problems or concerns. He is happy to plan and discharged to home.
== END 2017-07-25 20:35 | disposition home or self-care (01) ==
LOC: C.EDB 16:40
DX: K57.92 Diverticulitis of intestine, part unspecified, without perforation or abscess without bleeding (principal); M54.5 Low back pain; I50.9 Heart failure, unspecified; I11.0 Hypertensive heart disease with heart failure; E11.9 Type 2 diabetes mellitus without complications; Z99.81 Dependence on supplemental oxygen; Z90.49 Acquired absence of other specified parts of digestive tract; Z87.442 Personal history of urinary calculi; E78.5 Hyperlipidemia, unspecified; Z86.718 Personal history of other venous thrombosis and embolism; E66.9 Obesity, unspecified; G47.33 Obstructive sleep apnea (adult) (pediatric); Z79.82 Long term (current) use of aspirin; Z79.899 Other long term (current) drug therapy; Z88.8 Allergy status to other drugs, medicaments and biological substances; Z88.6 Allergy status to analgesic agent

== ENCOUNTER 2022-12-27 21:51 | Inpatient (IN) ==
[2022-12-27 22:46] LABS: Basophils # (auto) 0.01 K/uL (0.00-0.20); Basophils % (auto) 0.1 %; Eosinophils # (auto) 0.12 K/uL (0.00-0.50); Eosinophils % (auto) 1.5 %; Hematocrit (blood only) 46.7 % (42.0-52.0); Hemoglobin 15.4 g/dl (14.0-18.0); Immature Granulocytes # (auto) 0.02 K/uL (0.01-0.20); Immature Granulocytes % (auto) 0.3 %; Lymphocytes # (auto) 0.84 K/uL (1.20-3.40); Lymphocytes % (auto) 10.6 %; Mean Corpuscular Hemoglobin 29.1 pg (25.0-34.0); Mean Corpuscular Volume 88.1 fL (80.0-100.0); Mean Platelet Volume 10.2 fL (9.4-12.4); Monocytes # (auto) 0.64 K/uL (0.11-0.59); Monocytes % (auto) 8.1 %; Neutrophils # (auto) 6.28 K/uL (1.40-6.50); Neutrophils % (auto) 79.4 %; Platelet Count 118 K/uL (130-400); RDW Standard Deviation 45.2 fL (36.4-46.3); White Blood Count 7.91 K/ul (4.8-10.8)
[2022-12-27 23:00] LABS: Alanine Aminotransferase 10 U/L (7-52); Albumin Globulin Ratio 1.3 (0.9-2); Albumin Level 4.1 gm/dl (3.4-5.0); Alkaline Phosphatase 119 U/L (34-104); Anion Gap 7 (3-11); Aspartate Aminotransferase 15 U/L (13-39); BUN Creatinine Ratio 18.1 (10-20); Bilirubin Direct 0.3 mg/dl (0-0.2); Blood Urea Nitrogen 19 mg/dl (6-23); Carbon Dioxide 22 mmol/L (21-32); Chloride 108 mmol/L (98-107); Est GFR (African American) 81.8 ml/min; Est GFR (Non-African American) 70.6 ml/min; Globulin 3.1 gm/dl (2.5-4.0); Glucose 118 mg/dl (70-99(Fasting)); Potassium 3.6 mmol/L (3.5-5.1); Sodium 137 mmol/L (136-145); Total Protein 7.2 gm/dl (6.0-8.3)
[2022-12-27 23:33] LABS: Adenovirus PCR Not Detected (NotDetected); Bordetella parapertussis PCR Not Detected (NotDetected); Bordetella pertussis PCR Not Detected (NotDetected); Chlamydia pneumoniae PCR Not Detected (NotDetected); Coronavirus 229E PCR Not Detected (NotDetected); Coronavirus HKU1 PCR Not Detected (NotDetected); Coronavirus NL63 PCR Not Detected (NotDetected); Coronavirus OC43PCR Not Detected (NotDetected); Human Metapneumovirus PCR Not Detected (NotDetected); Influenza A PCR Not Detected (NotDetected); Influenza B PCR Not Detected (NotDetected); Mycoplasma pneumoniae PCR Not Detected (NotDetected); Parainfluenza Virus 1 PCR Not Detected (NotDetected); Parainfluenza Virus 2 PCR Not Detected (NotDetected); Parainfluenza Virus 3 PCR Not Detected (NotDetected); Parainfluenza Virus 4 PCR Not Detected (NotDetected); Respiratory Syncytial VirusPCR Not Detected (NotDetected); Rhinovirus/Enterovirus PCR Not Detected (NotDetected)
[2022-12-27 23:49] LABS: Coronavirus CoV-2 (COVID19)PCR DETECTED (NotDetected)
--- NOTE | 2022-12-27 23:56 | Emergency Department Note ---
Impression & Plan COVID-19 ED Provider Note NAME: NEFTALI ORDRIGUEZ AGE: 71 SEX: M : 1950 ARRIVES VIA: Walk-In INFORMANT: Patient, ED PROVIDER(S): Mari Roy MD CHIEF COMPLAINT: Weakness HPI: This is a 71-year-old male with history of CHF, COPD, hyperlipidemia, GERD, gout presenting for weakness. Patient states that he lives with his son and [id number] who test positive for COVID about 2 weeks ago. For the past 10 days patient has been battling symptoms of weakness, fever, body aches, chills. He has not had any shortness of breath or chest pain. He does state he feels more wobbly on his feet however and he states he feels extremely weak and unable to walk some of the time. He states his has similar symptoms and is also in the ER at this time. He notes reduced appetite overall. ROS: See above HPI for pertinent positives & negatives. A total of 10 systems reviewed and were otherwise negative. PAST MEDICAL HISTORY: See Below PAST SURGICAL HISTORY: See Below FAMILY HISTORY: See Below SOCIAL HISTORY: See Below HOME MEDICATIONS: See Below ALLERGIES: See Below VITALS: See Below PHYSICAL EXAMINATION: General: resting comfortably in no acute distress Head: Normocephalic and atraumatic Eyes: Normal inspection, extraocular muscles intact, no conjunctival pallor Ear, nose, throat: Normal external exam Neck: Normal range of motion Respiratory: Slight tachypnea, lungs clear to auscultation bilaterally Cardiovascular: RRR without murmur appreciated GI: soft, nontender, no guarding or rebound Extremities: pulses intact with good cap refills, no LE pitting edema or calf tenderness Neuro: The patient awake and alert, appropriately conversive,no focal decifits Skin: Warm, dry, and intact MEDICAL DECISION MAKING: This is a 71-year-old male with history of CHF, COPD, hyperlipidemia, GERD and gout presenting for weakness. Patient COVID-19 as he has positive contacts including his son, [id number] and . Vital signs are reviewed and are within normal limits. We will do blood work, chest x-ray and COVID-19 test. Patient's blood work is actually reassuring without significant abnormalities or signs of dehydration. Patient chest x-ray does reveal bilateral opacities. Otherwise patient's currently COVID-positive. Patient ambulated, was having difficult time walking in, more tachypneic. He states usually his is there to help him but she is currently getting admitted to the hospital. He states he will not have help at home for 12+ hours a day. He states he feels comfortable going home due to his current weakness, instability on his feet, shortness of breath when walking. Will admit for observation. Triage Nursing notes reviewed. Prior medical records reviewed Vital Signs: reviewed and remarkable for no significant abnormalities Differential diagnosis: Pneumonia, COVID-19, PE, ACS ER treatment provided: See below Diagnostics interpreted by me: ECG: None Cardiac Monitoring: An order was placed for continuous cardiac monitoring. The monitor shows a rate of 70 with sinus rhythm. Laboratory studies: As stated above and show below. Imaging studies: See below. Radiographic imaging was reviewed by myself Consultation(s): None Past Med/Surg History Medical History Allergic rhinitis Aortic aneurysm abdominal aortic ectasia; last checked 2022 (3.2cm and stable); follows with Dr. Heck Arthritis, lumbar spine following with ortho BPH (benign prostatic hyperplasia) with LUTS CHF (congestive heart failure), NYHA class III follows with Dr. Heck ; chronic diastolic HF Cognitive dysfunction mild small vessel disease per Neurology; on ASA 81mg Common migraine without aura Constipation COPD (chronic obstructive pulmonary disease) no inhalers > well controlled per pt Cor pulmonale follows with pulm (; sees yearly); per chart review, pt improved and stable since using CPAP and O2 qHS Disc degeneration, lumbar follows with ortho Diverticulosis of colon GERD (gastroesophageal reflux disease) Gout H/O blood clots hx of, and also more recent in right leg, dx Apr 2022; per pt was on Eliquis but has since been D/C. (per chart review, clots superficial) Hearing deficit HLA-B27 positive arthropathy Hydrocele Hyperlipidemia Hypertension 'at target' per cardio Idiopathic polyneuropathy Kidney stone Lumbar facet joint syndrome Lumbar herniated disc Mild CAD medically managed by cardio. Cath 2014 40% mid LAD, 10% R PDA stenosis, otherwise normal anatomy On home oxygen therapy WEARS 3L O2 AT HS Osteoarthritis Pulmonary hypertension Respiratory failure pt denies difficulty breathing ; 3L O2 qHS Severe obstructive sleep apnea cpap with 3L O2 HS Tinnitus Undifferentiated spondyloarthropathy Venous insufficiency follows with cardio Vitamin B12 deficiency Vitamin D deficiency Surgical History H/O cataract extraction RT/LEFT History of cardiac cath (2014) 2014 (NO STENTS) History of esophagogastroduodenoscopy (EGD) History of tooth extraction S/P appendectomy S/P cholecystectomy S/P myringotomy with insertion of tube RT EAR S/P tonsillectomy Family History Father Coronary heart disease Myocardial infarction, Onset Age: 59 Stroke Mother Stroke Depression Grandfather (Paternal) , age 32 Myocardial infarction Brother Depression Denies family history of Ovarian cancer Prostate cancer Dementia Breast cancer Lung cancer Colorectal cancer Social History Smoking Status: Never smoker Second Hand Exposure: No; Do You Dip or Chew Tobacco: No; Hx Alcohol Use: No Hx Substance Use: No Preferred Language: Algerian Communication Ability: Effective Visual Impairment: No Limitations Hearing Ability: Hard of Hearing Autopsy Assistant Required: No Beliefs That Will Affect Care: None marital status: Current Living Situation: Spouse current occupational status: disabled How many Children do You have: 3 How many Children do You have Comment: 3 boys Feels Safe at Home: Yes Childhood Exposure to Second-Hand Smoke: No Diet: regular caffeine: Yes (1-2 cups coffee) during the past year weight has: remained stable Dental Care, Regularly: Yes Physical Activity Frequency: Does not Exercise Physical Activity Frequency Comment: due to physical condition Seatbelt Use: always Sunscreen Use: No Assistive Devices: Cane, Denture - Upper, Glasses and Oxygen - at Night Allergies Allergies Allergy/AdvReac Type Severity Reaction Status Date / Time KAMINI Inhibitors Allergy Severe Angioedema Verified 12/27/22 23:26 lisinopril Allergy Severe THROAT Verified 12/27/22 23:26 SWELLING; HYPERTENSION ibuprofen Allergy Mild NAUSEA/VOMITING/NERVOUSNESS/MOUTH Verified 12/27/22 23:26 WATER baclofen AdvReac Mild shakey Verified 12/27/22 23:26 Home Meds Home Medications Medication Instructions Recorded Confirmed aspirin 81 mg chewable tablet 81 mg PO QAM 02/11/18 12/27/22 atorvastatin 40 mg tablet 40 mg PO HS 02/11/18 12/27/22 carvedilol 12.5 mg tablet 12.5 mg PO BID 02/11/18 12/27/22 fexofenadine 180 mg tablet 180 mg PO QAM 12/14/18 12/27/22 (Marifer Allergy) pantoprazole 40 mg tablet,delayed 40 mg PO QAM 04/17/20 12/27/22 release ascorbic acid (vitamin C) 500 mg 1,000 mg PO QAM 06/19/20 12/27/22 tablet (Vitamin C) cholecalciferol (vitamin D3) 50 4,000 units PO QAM 06/19/20 12/27/22 mcg (2,000 unit) tablet nortriptyline 50 mg capsule 150 mg PO HS 12/27/22 12/27/22 topiramate 100 mg tablet 200 mg PO QPM 12/27/22 12/27/22 topiramate 100 mg tablet (Topamax) 100 mg PO QAM 12/27/22 12/27/22 Previous Rx's Medication Instructions Recorded Oxygen Home #1 ea 12/02/18 etodolac 500 mg tablet 500 mg PO QAM #90 tabs 06/22/22 miconazole nitrate 2 % topical 1 applic topical DAILY #85 grams 07/03/22 powder amlodipine 5 mg tablet 5 mg PO QAM #90 tabs 07/13/22 famotidine 20 mg tablet 20 mg PO BID #180 tabs 07/20/22 naloxegol 25 mg tablet (Movantik) 25 mg PO QAM #30 tabs 07/23/22 torsemide 10 mg tablet 10 mg PO QAM #30 tabs 07/29/22 cyanocobalamin (vitamin B-12) 1,000 mcg subcut MONTHLY 90 days 08/19/22 1,000 mcg/mL injection solution #3 mL pregabalin 100 mg capsule 100 mg PO BID #60 caps 08/19/22 nystatin 100,000 unit/gram topical 1 applic topical BID #30 grams 10/23/22 cream allopurinol 100 mg tablet 100 mg PO QAM #90 tabs 11/09/22 alprazolam 0.5 mg tablet (Xanax) 0.5 mg PO .COMPLEX #2 tabs 11/09/22 lubiprostone 24 mcg capsule 24 mcg PO BID #60 caps 11/17/22 (Amitiza) spironolactone 25 mg tablet 12.5 mg PO BID #90 tabs 11/20/22 oxycodone 5 mg tablet 10 mg PO Q8H PRN pain #180 tabs 12/03/22 phenazopyridine 200 mg tablet 200 mg PO Q8H PRN pain #10 tabs 12/03/22 (Pyridium) tamsulosin 0.4 mg capsule 0.4 mg PO HS #30 caps 12/03/22 Results & Data (ED) Vital Signs Vital Signs - 24 hr 12/27/22 21:55 12/27/22 22:30 12/27/22 22:18 Temperature 36.5 C Temperature Source Temporal Artery Scan Pulse Rate 71 64 66 Pulse Rate from SpO2 Sensor Respiratory Rate 18 23 Respiratory Effort / Characteristics Non-Labored Spontaneous Respiratory Depth Normal Respiratory Pattern Regular Blood Pressure 126/73 154/78 H Blood Pressure Mean 90 103 Blood Pressure Position Sitting Pulse Oximetry 96 95 Oxygen Delivery Method Room Air Room Air Sepsis Recent Fever Within 48 Hours Yes Sepsis New/Unexplained Change in Mental Status N/A Sepsis Action Taken by Nursing No Action Required 12/27/22 23:00 12/27/22 23:00 12/27/22 23:10 Temperature Temperature Source Pulse Rate 67 68 Pulse Rate from SpO2 Sensor 66 70 Respiratory Rate 18 20 Respiratory Effort / Characteristics Respiratory Depth Respiratory Pattern Blood Pressure 166/82 H Blood Pressure Mean 111 Blood Pressure Position Pulse Oximetry 94 96 Oxygen Delivery Method Sepsis Recent Fever Within 48 Hours Sepsis New/Unexplained Change in Mental Status Sepsis Action Taken by Nursing 12/27/22 23:20 12/27/22 23:30 12/27/22 23:41 Temperature Temperature Source Pulse Rate 68 70 Pulse Rate from SpO2 Sensor 68 69 83 Respiratory Rate 21 21 Respiratory Effort / Characteristics Respiratory Depth Respiratory Pattern Blood Pressure Blood Pressure Mean Blood Pressure Position Pulse Oximetry 94 93 92 Oxygen Delivery Method Sepsis Recent Fever Within 48 Hours Sepsis New/Unexplained Change in Mental Status Sepsis Action Taken by Nursing 12/27/22 23:50 12/28/22 00:00 12/28/22 00:10 Temperature Temperature Source Pulse Rate Pulse Rate from SpO2 Sensor 71 69 72 Respiratory Rate Respiratory Effort / Characteristics Respiratory Depth Respiratory Pattern Blood Pressure Blood Pressure Mean Blood Pressure Position Pulse Oximetry 95 95 95 Oxygen Delivery Method Sepsis Recent Fever Within 48 Hours Sepsis New/Unexplained Change in Mental Status Sepsis Action Taken by Nursing 12/28/22 00:20 Temperature Temperature Source Pulse Rate Pulse Rate from SpO2 Sensor 75 Respiratory Rate Respiratory Effort / Characteristics Respiratory Depth Respiratory Pattern Blood Pressure Blood Pressure Mean Blood Pressure Position Pulse Oximetry 94 Oxygen Delivery Method Sepsis Recent Fever Within 48 Hours Sepsis New/Unexplained Change in Mental Status Sepsis Action Taken by Nursing Laboratory Data 12/27/22 22:18 12/27/22 22:18 Lab Results 12/27/22 12/27/22 12/27/22 Range/Units 22:11 22:18 22:18 WBC 7.91 (4.8-10.8) K/ul RBC 5.30 (4.70-6.10) M/uL Hgb 15.4 (14.0-18.0) g/dl Hct 46.7 (42.0-52.0) % MCV 88.1 (80.0-100.0) fL MCH 29.1 (25.0-34.0) pg MCHC 33.0 (32.0-36.0) g/dL RDW Std Deviation 45.2 (36.4-46.3) fL RDW Coeff of Ben 14.0 (11.5-14.5) % Plt Count 118 L (130-400) K/uL MPV 10.2 (9.4-12.4) fL Immature Gran % (Auto) 0.3 % Neut % (Auto) 79.4 % Lymph % (Auto) 10.6 % [place] % (Auto) 8.1 % Eos % (Auto) 1.5 % Baso % (Auto) 0.1 % Neut # (Auto) 6.28 (1.40-6.50) K/uL Lymph # (Auto) 0.84 L (1.20-3.40) K/uL [place] # (Auto) 0.64 H (0.11-0.59) K/uL Eos # (Auto) 0.12 (0.00-0.50) K/uL Baso # (Auto) 0.01 (0.00-0.20) K/uL Immature Gran # (Auto) 0.02 (0.01-0.20) K/uL Sodium 137 (136-145) mmol/L Potassium 3.6 (3.5-5.1) mmol/L Chloride 108 H (98-107) mmol/L Carbon Dioxide 22 (21-32) mmol/L Anion Gap 7 (3-11) BUN 19 (6-23) mg/dl Creatinine 1.05 (0.6-1.4) mg/dl Est Cr Clr Drug Dosing Not Reportable Est GFR ( Amer) 81.8 ml/min Est GFR (Non-Af Amer) 70.6 ml/min BUN/Creatinine Ratio 18.1 (10-20) Glucose 118 H (70-99(Fasting)) mg/dl Calcium 9.0 (8.6-10.3) mg/dl Total Bilirubin 1.0 (0.2-1.0) mg/dl Direct Bilirubin 0.3 H (0-0.2) mg/dl AST 15 (13-39) U/L ALT 10 (7-52) U/L Alkaline Phosphatase 119 H (34-104) U/L Total Protein 7.2 (6.0-8.3) gm/dl Albumin 4.1 (3.4-5.0) gm/dl Globulin 3.1 (2.5-4.0) gm/dl Albumin/Globulin Ratio 1.3 (0.9-2) Adenovirus (PCR) Not Detected (NotDetected) B. pertussis DNA (PCR) Not Detected (NotDetected) B.parapertussis DNA PCR Not Detected (NotDetected) C. pneumoniae DNA (PCR) Not Detected (NotDetected) Coronavirus OC43 (PCR) Not Detected (NotDetected) Coronavirus HKU1 (PCR) Not Detected (NotDetected) Coronavirus 229E (PCR) Not Detected (NotDetected) SARS-CoV-2 (PCR) DETECTED A* (NotDetected) Coronavirus NL63 (PCR) Not Detected (NotDetected) Human Metapneumovir PCR Not Detected (NotDetected) Influenza Type A (PCR) Not Detected (NotDetected) Influenza Type B (PCR) Not Detected (NotDetected) M. pneumoniae (PCR) Not Detected (NotDetected) Parainfluenza 1 (PCR) Not Detected (NotDetected) Parainfluenza 2 (PCR) Not Detected (NotDetected) Parainfluenza 3 (PCR) Not Detected (NotDetected) Parainfluenza 4 (PCR) Not Detected (NotDetected) RSV (PCR) Not Detected (NotDetected) Entero/Rhino (PCR) Not Detected (NotDetected) Administered Medications Discontinued Medications Miscellaneous (Patient's Height &/Or Weight Needed) 1 each N/A Q2H LORE Stop: 01/26/23 21:54 Last Admin: 12/28/22 02:23 Dose: Not Given Documented By: Admin: 12/28/22 02:22 Dose: 1 each Documented By: POORNIMA Discharge Plan Visit Data Chief Complaint: Illness Stated Complaint: COVID, WEAKNESS, COUGH ED Provider: Mari Roy Discharge Problem: COVID-19 Patient Disposition: Admitted As Inpatient Discharge Instructions Interventions: ED Discharge Assessment Last Done: 12/28/22 01:41
--- NOTE | 2022-12-28 00:28 | History & Physical Report ---
Date of Service December 28, 2022 Assessment & Plan (1) COVID-19: Plan: Patient with one week of symptom - nausea/vomiting/diarrhea, cough and episodes of confusion. Also with GAUTHIER. Saturations have been adequate on room air. Patient is unsteady on his feet and concerned about returning home alone. His is presently admitted for similar symptoms -Observation to medical -Maintain isolation precautions -Monitor saturations -PT/OT evaluation appreciated for acute weakness -Maintain fall precautions (2) Severe obstructive sleep apnea: Plan: Chronic. -CPAP qHS (3) Hypertension: Plan: Blood pressure mildly elevated at present -Continue Amlodipine 5mg po daily -Continue Carvedilol 12.5mg po BID -Continue Spironolactone (4) Hyperlipidemia: Plan: Chronic. Stable -Continue Atorvastatin 40mg po qHS (5) Gout: Plan: Chronic. Stable -Continue Allopurinol 100mg po daily (6) GERD (gastroesophageal reflux disease): Plan: Chronic. Stable -Continue Pepcid -Continue Protonix (7) COPD (chronic obstructive pulmonary disease): Plan: No cough, SOB or wheeze. No home inhalers -Albuterol PRN F/E/N - Saline lock. Electrolytes WNL. Heart healthy diet as tolerated Ppx -Lovenox Code - Full Dispo - Observation to medical History of Present Illness Chief Complaint: Covid-19 infection Primary Care Provider: Myranda Lu DO [place] Johnston is a 71yo male with multiple medical comorbidities presenting with Covid-19 infection. Patient with one week of nausea, vomiting, diarrhea as well as dry cough, PERRY and periods of confusion and disorientation. He also feels quite weak and unsteady on his feet. Patient's with similar symptoms - is being admitted to PCU. Patient lives at home, is concerned about being home alone with unsteadiness/confusion In the ER he is afebrile, HD stable. O2 saturations maintained >94%. Ambulatory trial with acceptable saturations but patient is quite unsteady on his feet. Allergies Allergy/AdvReac Type Severity Reaction Status Date / Time KAMINI Inhibitors Allergy Severe Angioedema Verified 12/27/22 23:26 lisinopril Allergy Severe THROAT Verified 12/27/22 23:26 SWELLING; HYPERTENSION ibuprofen Allergy Mild NAUSEA/VOMITING/NERVOUSNESS/MOUTH Verified 12/27/22 23:26 WATER baclofen AdvReac Mild shakey Verified 12/27/22 23:26 Home Medications Medication Instructions Recorded Confirmed Type aspirin 81 mg chewable tablet 81 mg PO QAM 02/11/18 12/27/22 History atorvastatin 40 mg tablet 40 mg PO HS 02/11/18 12/27/22 History carvedilol 12.5 mg tablet 12.5 mg PO BID 02/11/18 12/27/22 History Oxygen Home #1 ea 12/02/18 12/03/22 Rx fexofenadine 180 mg tablet 180 mg PO QAM 12/14/18 12/27/22 History (Marifer Allergy) pantoprazole 40 mg tablet,delayed 40 mg PO QAM 04/17/20 12/27/22 History release ascorbic acid (vitamin C) 500 mg 1,000 mg PO QAM 06/19/20 12/27/22 History tablet (Vitamin C) cholecalciferol (vitamin D3) 50 4,000 units PO QAM 06/19/20 12/27/22 History mcg (2,000 unit) tablet etodolac 500 mg tablet 500 mg PO QAM #90 tabs 06/22/22 12/27/22 Rx miconazole nitrate 2 % topical 1 applic topical DAILY #85 grams 07/03/22 12/27/22 Rx powder amlodipine 5 mg tablet 5 mg PO QAM #90 tabs 07/13/22 12/27/22 Rx famotidine 20 mg tablet 20 mg PO BID #180 tabs 07/20/22 12/27/22 Rx naloxegol 25 mg tablet (Movantik) 25 mg PO QAM #30 tabs 07/23/22 12/27/22 Rx torsemide 10 mg tablet 10 mg PO QAM #30 tabs 07/29/22 12/27/22 Rx cyanocobalamin (vitamin B-12) 1,000 mcg subcut MONTHLY 90 days 08/19/22 12/27/22 Rx 1,000 mcg/mL injection solution #3 mL pregabalin 100 mg capsule 100 mg PO BID #60 caps 08/19/22 12/27/22 Rx nystatin 100,000 unit/gram topical 1 applic topical BID #30 grams 10/23/22 12/27/22 Rx cream allopurinol 100 mg tablet 100 mg PO QAM #90 tabs 11/09/22 12/27/22 Rx alprazolam 0.5 mg tablet (Xanax) 0.5 mg PO .COMPLEX #2 tabs 11/09/22 12/27/22 Rx lubiprostone 24 mcg capsule 24 mcg PO BID #60 caps 11/17/22 12/27/22 Rx (Amitiza) spironolactone 25 mg tablet 12.5 mg PO BID #90 tabs 11/20/22 12/27/22 Rx oxycodone 5 mg tablet 10 mg PO Q8H PRN pain #180 tabs 12/03/22 12/27/22 Rx phenazopyridine 200 mg tablet 200 mg PO Q8H PRN pain #10 tabs 12/03/22 12/27/22 Rx (Pyridium) tamsulosin 0.4 mg capsule 0.4 mg PO HS #30 caps 12/03/22 12/27/22 Rx nortriptyline 50 mg capsule 150 mg PO HS 12/27/22 12/27/22 History topiramate 100 mg tablet 200 mg PO QPM 12/27/22 12/27/22 History topiramate 100 mg tablet (Topamax) 100 mg PO QAM 12/27/22 12/27/22 History Past Med/Surg History Medical History Allergic rhinitis Aortic aneurysm abdominal aortic ectasia; last checked 2022 (3.2cm and stable); follows with Dr. Heck Arthritis, lumbar spine following with ortho BPH (benign prostatic hyperplasia) with LUTS CHF (congestive heart failure), NYHA class III follows with Dr. Heck ; chronic diastolic HF Cognitive dysfunction mild small vessel disease per Neurology; on ASA 81mg Common migraine without aura Constipation COPD (chronic obstructive pulmonary disease) no inhalers > well controlled per pt Cor pulmonale follows with pulm (; sees yearly); per chart review, pt improved and stable since using CPAP and O2 qHS Disc degeneration, lumbar follows with ortho Diverticulosis of colon GERD (gastroesophageal reflux disease) Gout H/O blood clots hx of, and also more recent in right leg, dx Apr 2022; per pt was on Eliquis but has since been D/C. (per chart review, clots superficial) Hearing deficit HLA-B27 positive arthropathy Hydrocele Hyperlipidemia Hypertension 'at target' per cardio Idiopathic polyneuropathy Kidney stone Lumbar facet joint syndrome Lumbar herniated disc Mild CAD medically managed by cardio. Cath 2014 40% mid LAD, 10% R PDA stenosis, otherwise normal anatomy On home oxygen therapy WEARS 3L O2 AT HS Osteoarthritis Pulmonary hypertension Respiratory failure pt denies difficulty breathing ; 3L O2 qHS Severe obstructive sleep apnea cpap with 3L O2 HS Tinnitus Undifferentiated spondyloarthropathy Venous insufficiency follows with cardio Vitamin B12 deficiency Vitamin D deficiency Surgical History H/O cataract extraction RT/LEFT History of cardiac cath (2014) 2014 (NO STENTS) History of esophagogastroduodenoscopy (EGD) History of tooth extraction S/P appendectomy S/P cholecystectomy S/P myringotomy with insertion of tube RT EAR S/P tonsillectomy Family History Father Coronary heart disease Myocardial infarction, Onset Age: 59 Stroke Mother Stroke Depression Grandfather (Paternal) , age 32 Myocardial infarction Brother Depression Denies family history of Ovarian cancer Prostate cancer Dementia Breast cancer Lung cancer Colorectal cancer Social History Smoking Status: Never smoker Second Hand Exposure: No; Do You Dip or Chew Tobacco: No; Hx Alcohol Use: No Hx Substance Use: No Preferred Language: Guinean Communication Ability: Effective Visual Impairment: No Limitations Hearing Ability: Hard of Hearing Plumber'S Helper Required: No Beliefs That Will Affect Care: None marital status: Current Living Situation: Spouse current occupational status: disabled How many Children do You have: 3 How many Children do You have Comment: 3 boys Feels Safe at Home: Yes Childhood Exposure to Second-Hand Smoke: No Diet: regular caffeine: Yes (1-2 cups coffee) during the past year weight has: remained stable Dental Care, Regularly: Yes Physical Activity Frequency: Does not Exercise Physical Activity Frequency Comment: due to physical condition Seatbelt Use: always Sunscreen Use: No Assistive Devices: Cane, Denture - Upper, Glasses and Oxygen - at Night Review of Systems Review of Systems: All systems reviewed & are unremarkable except as noted in HPI & below Physical Exam Physical Exam: General: patient resting comfortably, NAD, non-toxic in appearance, AA&O x 4 Skin: warm, dry, intact, no rashes or lesions HEENT: NC/AT, PERRL, EOMI, anicteric sclera, conjunctiva without injection, external ear normal to inspection and nontender, nares patent, moist mucus membranes, dentition intact, no oropharyngeal lesions, neck supple, trachea m idline, no LAD, no thyromegaly, no JVD Heart: +S1/S2, regular, no m/r/g Lungs: equal air entry bilaterally, no rales/rhonchi/wheezes Abd: +BS, soft, NT/ND, no masses/organomegaly/ascites Ext: warm, 2+ pulses in UE/LE bilaterally, no clubbing/cyanosis or edema Neuro: nonfocal, patient AA&O x 4, speech intact, no facial droop, moving all extremities on command with equal strength 5/5 Results & Data Results & Data Vital Signs (Past 12 Hours) Vital Signs Temp Pulse Resp BP Pulse Ox O2 Del Method 12/27/22 22:18 66 12/27/22 22:30 64 23 154/78 H 95 Room Air 12/27/22 21:55 36.5 C 71 18 126/73 96 Room Air Laboratory Results Laboratory Results WBC 7.91 K/ul (4.8-10.8) 12/27/22 22:18 RBC 5.30 M/uL (4.70-6.10) 12/27/22 22:18 Hgb 15.4 g/dl (14.0-18.0) 12/27/22 22:18 Hct 46.7 % (42.0-52.0) 12/27/22 22:18 MCV 88.1 fL (80.0-100.0) 12/27/22 22:18 MCH 29.1 pg (25.0-34.0) 12/27/22 22:18 MCHC 33.0 g/dL (32.0-36.0) 12/27/22 22:18 RDW Std Deviation 45.2 fL (36.4-46.3) 12/27/22 22:18 RDW Coeff of Ben 14.0 % (11.5-14.5) 12/27/22 22:18 Plt Count 118 K/uL (130-400) L 12/27/22 22:18 MPV 10.2 fL (9.4-12.4) 12/27/22 22:18 Immature Gran % (Auto) 0.3 % 12/27/22 22:18 Neut % (Auto) 79.4 % 12/27/22 22:18 Lymph % (Auto) 10.6 % 12/27/22 22:18 Nicholas % (Auto) 8.1 % 12/27/22 22:18 Eos % (Auto) 1.5 % 12/27/22 22:18 Baso % (Auto) 0.1 % 12/27/22 22:18 Neut # (Auto) 6.28 K/uL (1.40-6.50) 12/27/22 22:18 Lymph # (Auto) 0.84 K/uL (1.20-3.40) L 12/27/22 22:18 Nicholas # (Auto) 0.64 K/uL (0.11-0.59) H 12/27/22 22:18 Eos # (Auto) 0.12 K/uL (0.00-0.50) 12/27/22 22:18 Baso # (Auto) 0.01 K/uL (0.00-0.20) 12/27/22 22:18 Immature Gran # (Auto) 0.02 K/uL (0.01-0.20) 12/27/22 22:18 Sodium 137 mmol/L (136-145) 12/27/22 22:18 Potassium 3.6 mmol/L (3.5-5.1) 12/27/22 22:18 Chloride 108 mmol/L (98-107) H 12/27/22 22:18 Carbon Dioxide 22 mmol/L (21-32) 12/27/22 22:18 Anion Gap 7 (3-11) 12/27/22 22:18 BUN 19 mg/dl (6-23) 12/27/22 22:18 Creatinine 1.05 mg/dl (0.6-1.4) 12/27/22 22:18 Est Cr Clr Drug Dosing Not Reportable 12/27/22 22:18 Est GFR ( Amer) 81.8 ml/min 12/27/22 22:18 Est GFR (Non-Af Amer) 70.6 ml/min 10/08/23 22:18 BUN/Creatinine Ratio 18.1 (10-20) 12/27/22 22:18 Glucose 118 mg/dl (70-99(Fasting)) H 12/27/22 22:18 Calcium 9.0 mg/dl (8.6-10.3) 12/27/22 22:18 Total Bilirubin 1.0 mg/dl (0.2-1.0) 12/27/22 22:18 Direct Bilirubin 0.3 mg/dl (0-0.2) H 12/27/22 22:18 AST 15 U/L (13-39) 12/27/22 22:18 ALT 10 U/L (7-52) 12/27/22 22:18 Alkaline Phosphatase 119 U/L (34-104) H 12/27/22 22:18 Total Protein 7.2 gm/dl (6.0-8.3) 12/27/22 22:18 Albumin 4.1 gm/dl (3.4-5.0) 12/27/22 22:18 Globulin 3.1 gm/dl (2.5-4.0) 12/27/22 22:18 Albumin/Globulin Ratio 1.3 (0.9-2) 12/27/22 22:18 Adenovirus (PCR) Not Detected (NotDetected) 12/27/22 22:11 B. pertussis DNA (PCR) Not Detected (NotDetected) 12/27/22 22:11 B.parapertussis DNA PCR Not Detected (NotDetected) 12/27/22 22:11 C. pneumoniae DNA (PCR) Not Detected (NotDetected) 12/27/22 22:11 Coronavirus OC43 (PCR) Not Detected (NotDetected) 12/27/22 22:11 Coronavirus HKU1 (PCR) Not Detected (NotDetected) 12/27/22 22:11 Coronavirus 229E (PCR) Not Detected (NotDetected) 12/27/22 22:11 SARS-CoV-2 (PCR) DETECTED (NotDetected) A* 12/27/22 22:11 Coronavirus NL63 (PCR) Not Detected (NotDetected) 12/27/22 22:11 Human Metapneumovir PCR Not Detected (NotDetected) 12/27/22 22:11 Influenza Type A (PCR) Not Detected (NotDetected) 12/27/22 22:11 Influenza Type B (PCR) Not Detected (NotDetected) 12/27/22 22:11 M. pneumoniae (PCR) Not Detected (NotDetected) 12/27/22 22:11 Parainfluenza 1 (PCR) Not Detected (NotDetected) 12/27/22 22:11 Parainfluenza 2 (PCR) Not Detected (NotDetected) 12/27/22 22:11 Parainfluenza 3 (PCR) Not Detected (NotDetected) 12/27/22 22:11 Parainfluenza 4 (PCR) Not Detected (NotDetected) 12/27/22 22:11 RSV (PCR) Not Detected (NotDetected) 12/27/22 22:11 Entero/Rhino (PCR) Not Detected (NotDetected) 12/27/22 22:11 Code Status & VTE Plan VTE Prophylaxis Plan VTE Prophylaxis will be ordered: Yes PG Care Time/CCT Total # of Minutes Spent Total Time Spent with Patient: Total time spent is greater than 50% in coordination of care (as documented) at patient's floor/unit and/or counseling patient: Coding Level of Care Code 77684 INT INP/OBS CARE 2/55MIN Diagnoses COVID-19 U07.1 Severe obstructive sleep apnea G47.33 Hypertension I10 Hyperlipidemia E78.5 Gout M10.9 GERD (gastroesophageal reflux disease) K21.9 COPD (chronic obstructive pulmonary disease) J44.9
[2022-12-28] MEDS ORDERED: oxyCODONE HCL IR 5 MG TAB (IMMEDIATE RELEASE) PO PRN (02:08)
[2022-12-28] MEDS ORDERED: ACETAMINOPHEN 325 MG TAB PO PRN (02:08)
[2022-12-28] MEDS ORDERED: ALBUTEROL HFA 8 GM INHALER INH PRN (02:08)
[2022-12-28] MEDS ORDERED: bisacodyL 10 MG SUPP PR PRN (02:08)
[2022-12-28] MEDS: Patient's HEIGHT &/or WEIGHT Needed SCH ×3 (02:22→02:52)
[2022-12-28] MEDS ORDERED: ONDANSETRON INJ 2 MG/ML 2 ML VIAL IV PRN (03:27)
[2022-12-28] MEDS: ENOXAPARIN INJ 40 MG/0.4 ML SYR SQ SCH (05:34)
--- NOTE | 2022-12-28 07:28 | XRay Report ---
XR chest 1V portable HISTORY: 71 years-old Male SOB acute shortness of breath COMPARISON: 11/26/2022 TECHNIQUE: AP view of the chest FINDINGS: Cardiac silhouette is mildly enlarged. Large hiatal hernia with intrathoracic stomach. No pneumothora x, pleural effusion or overt pulmonary edema. Mild bibasilar opacities are present. IMPRESSION: 1. Mild bibasilar opacities may represent atelectasis versus pneumonitis. 2. Large hiatal hernia. ACT 112: Negative or not required by law. The above report was generated using voice recognition software. It may contain grammatical, syntax o r spelling errors. Electronically signed by: Israel Rivas M.D. 12/28/2022 7:27 AM
[2022-12-28] MEDS: allopurinoL 100 MG TAB PO SCH (08:04)
[2022-12-28] MEDS: carvediloL 12.5 MG TAB PO SCH ×2 (08:05→20:23)
[2022-12-28] MEDS: ASPIRIN 81 MG CHEW PO SCH (08:05)
[2022-12-28] MEDS: FEXOFENADINE HCL 180 MG TAB PO SCH (08:05)
[2022-12-28] MEDS: amLODIPine BESYLATE 5 MG TAB PO SCH (08:05)
[2022-12-28] MEDS: FAMOTIDINE 20 MG TAB PO SCH ×2 (08:06→20:20)
[2022-12-28] MEDS: SPIRONOLACTONE 12.5 MG TAB PO SCH ×2 (08:06→17:51)
[2022-12-28] MEDS: TORSEMIDE 10 MG TAB PO SCH (08:06)
[2022-12-28] MEDS: PANTOprazole 40 MG TAB PO SCH (08:06)
[2022-12-28] MEDS: TOPIRAMATE 100 MG TAB PO SCH ×2 (08:07→20:19)
[2022-12-28] MEDS: POLYETHYLENE (MIRALAX) 17 GM PACK PO SCH (08:08)
[2022-12-28] MEDS: NYSTATIN CR 15 GM TUBE EXT SCH ×2 (08:08→20:23)
[2022-12-28] MEDS: MICONAZOLE NITRATE POWDER 85 GM TOP SCH (08:08)
[2022-12-28] MEDS: PREGABALIN 100 MG CAP PO SCH ×2 (08:59→20:19)
[2022-12-28] MEDS: dexAMETHasone 4 MG TAB PO SCH (10:00)
--- NOTE | 2022-12-28 17:09 | History & Physical Bridge Note ---
Date of Service December 28, 2022 History & Physical Bridge Note I have examined the patient, reviewed the History & Physical and in the interval since the performance of the History & Physical I have noted the following changes of clinical significance: Pt reports his chronic back pain is flaring up and he has not received his oxycodone after asking for it. He takes it routinely tid and also takes etodolac which he did not receive. He is also asking about all his meds for constipation. Denies any further loose stools, no nausea or vomiting and is eating but appetite lower than usual. Feels a little stronger today. Dry cough, some nasal congestion. VSS, NAD RRR no mgr CTAB no wcr ABd +BS sof [place] Ext no edema Restarted home oxycodone tid scheduled, etodolac, docusate, amitiza Added on decadron given h/o COPD, POx 92-94% at times PT/OT reports stable for dc to home, pt wants to stay one more night to get a little stronger as he is home alone during day and hospitalized as well with FRANNIE[facility]
[2022-12-28] MEDS: oxyCODONE HCL IR 5 MG TAB (IMMEDIATE RELEASE) PO SCH ×2 (17:51→20:19)
[2022-12-28] MEDS: NORTRIPTYLINE HCL 25 MG CAP PO SCH (20:20)
[2022-12-28] MEDS: DOCUSATE SODIUM 100 MG CAP PO SCH (20:21)
[2022-12-28] MEDS: ATORVASTATIN 40 MG TAB PO SCH (20:21)
[2022-12-28] MEDS: TAMSULOSIN HCL 0.4 MG CAP PO SCH (20:21)
[2022-12-28] MEDS: LUBIPROSTONE 8 MCG CAP PO SCH (20:22)
[2022-12-28] MEDS: ETODOLAC~ORDER AWAITING ACTION SCH (23:24)
[2022-12-29] MEDS: ENOXAPARIN INJ 40 MG/0.4 ML SYR SQ SCH (05:25)
[2022-12-29 06:41] LABS: Hematocrit (blood only) 43.5 % (42.0-52.0); Hemoglobin 14.8 g/dl (14.0-18.0); Mean Corpuscular Hemoglobin 29.3 pg (25.0-34.0); Mean Corpuscular Volume 86.1 fL (80.0-100.0); Mean Platelet Volume 10.4 fL (9.4-12.4); Platelet Count 151 K/uL (130-400); RDW Coefficient of Variation 13.9 % (11.5-14.5); Red Blood Count 5.05 M/uL (4.70-6.10); White Blood Count 5.72 K/ul (4.8-10.8)
[2022-12-29 07:12] LABS: BUN Creatinine Ratio 22.7 (10-20); Calcium 8.7 mg/dl (8.6-10.3); Creatinine Clr Calc Pharmacy 119.7 ml/min; Est GFR (African American) 106.2 ml/min; Est GFR (Non-African American) 91.6 ml/min; Potassium 3.9 mmol/L (3.5-5.1)
[2022-12-29] MEDS: allopurinoL 100 MG TAB PO SCH (08:13)
[2022-12-29] MEDS: oxyCODONE HCL IR 5 MG TAB (IMMEDIATE RELEASE) PO SCH ×3 (08:13→20:25)
[2022-12-29] MEDS: PREGABALIN 100 MG CAP PO SCH ×2 (08:13→20:25)
[2022-12-29] MEDS: DOCUSATE SODIUM 100 MG CAP PO SCH ×3 (08:14→20:24)
[2022-12-29] MEDS: CHOLECALCIFEROL 1,000 UNITS 25 MCG TAB PO SCH (08:14)
[2022-12-29] MEDS: ETODOLAC~ORDER AWAITING ACTION SCH ×3 (08:14→23:03)
[2022-12-29] MEDS: TOPIRAMATE 100 MG TAB PO SCH ×2 (08:15→20:23)
[2022-12-29] MEDS: ASCORBIC ACID 500 MG TAB PO SCH (08:15)
[2022-12-29] MEDS: dexAMETHasone 4 MG TAB PO SCH (08:16)
[2022-12-29] MEDS: LUBIPROSTONE 8 MCG CAP PO SCH ×2 (08:16→20:24)
[2022-12-29] MEDS: carvediloL 12.5 MG TAB PO SCH ×2 (08:17→20:23)
[2022-12-29] MEDS: ASPIRIN 81 MG CHEW PO SCH (08:17)
[2022-12-29] MEDS: PANTOprazole 40 MG TAB PO SCH (08:18)
[2022-12-29] MEDS: amLODIPine BESYLATE 5 MG TAB PO SCH (08:18)
[2022-12-29] MEDS: TORSEMIDE 10 MG TAB PO SCH (08:18)
[2022-12-29] MEDS: FEXOFENADINE HCL 180 MG TAB PO SCH (08:18)
[2022-12-29] MEDS: SPIRONOLACTONE 12.5 MG TAB PO SCH ×2 (08:18→17:09)
[2022-12-29] MEDS: FAMOTIDINE 20 MG TAB PO SCH ×2 (08:19→20:23)
[2022-12-29] MEDS: NYSTATIN CR 15 GM TUBE EXT SCH ×2 (08:20→20:25)
[2022-12-29] MEDS: MICONAZOLE NITRATE POWDER 85 GM TOP SCH (08:20)
[2022-12-29] MEDS: POLYETHYLENE (MIRALAX) 17 GM PACK PO SCH (08:20)
[2022-12-29] MEDS ORDERED: guaiFENesin/DEXTROM SYRUP 200MG/20MG 10ML UDC PO STA (14:26)
--- NOTE | 2022-12-29 20:07 | Hospitalist Progress Note ---
Date of Service December 29, 2022 Assessment & Plan (1) COVID-19: Plan: Patient with one week of symptom - nausea/vomiting/diarrhea, cough and episodes of confusion. Also with GAUTHIER. POx 92-94 at lowest on room air and was started on decadron. Has persistent dry cough, CXR negative for PNA APpetite improving, still feels weak but improving with walking -continue decadron, no role for Remdesevir as he presented 1 week into symptoms -Maintain isolation precautions -Monitor saturations -PT/OT evaluation appreciated for acute weakness-ok to return home but pt not comfortable doing so yet -Maintain fall precautions -add guaifenesin DM for cough (2) Severe obstructive sleep apnea: Plan: Chronic. -CPAP qHS (3) Hypertension: Plan: Blood pressure stable -Continue Amlodipine 5mg po daily -Continue Carvedilol 12.5mg po BID -Continue Spironolactone, torsemide (4) Hyperlipidemia: Plan: Chronic. Stable -Continue Atorvastatin 40mg po qHS (5) Gout: Plan: Chronic. Stable -Continue Allopurinol 100mg po daily (6) GERD (gastroesophageal reflux disease): Plan: Chronic. Stable -Continue Pepcid -Continue Protonix (7) COPD (chronic obstructive pulmonary disease): Plan: With cough but no wheezing. No home inhalers -Albuterol PRN continue decadron Ppx -Lovenox Code - Full Dispo - continued stay, hopeful for dc to home tomorrow Admission and Anticipated Discharge Date Admission Date: December 28, 2022 Anticipated date of discharge: 12/30/22 Subjective Pt having more cough today, better with cough syrup. Feels a little stronger but still feels too weak to go home No SOB but felt dizzy when he got up and walked around today APpetite improving Physical Exam Constitutional: WD/WN, vitals as above Neck: trachea midline, no thyromegaly Respiratory: normal respiratory effort, lungs clear to auscultation Cardiovascular: RRR, no murmur, no edema Chest (Breasts): Chest: normal inspection of chest Gastrointestinal (Abdomen): normal bowel sounds, soft, nontender, no hepatosplenomegaly Musculoskeletal: Extremities: extremities normal to inspection; no cyanosis and no clubbing Skin: no rashes, warm and dry Neurologic: moves all extremities and awake; no focal motor deficits Psychiatric: A+Ox3, euthymic affect Lymphatic: no lymphedema Results & Data Results & Data Vital Signs (Past 12 Hours) Vital Signs Temp Pulse Resp BP Pulse Ox O2 Del Method 12/29/22 15:07 36.4 C L 62 16 106/66 95 Room Air 12/29/22 08:26 36.4 C L 68 16 173/89 H 95 Room Air 12/29/22 08:10 135/83 Laboratory Results CBC, BMP, Ur cx reviewed PG Care Time/CCT Total # of Minutes Spent Total Time Spent with Patient: Total time spent is greater than 50% in coordination of care (as documented) at patient's floor/unit and/or counseling patient: Coding Level of Care Code 98069 SUB INP/OBS CARE 2/35MIN Diagnoses COVID-19 U07.1 Severe obstructive sleep apnea G47.33 Hypertension I10 Hyperlipidemia E78.5 Gout M10.9 GERD (gastroesophageal reflux disease) K21.9 COPD (chronic obstructive pulmonary disease) J44.9
[2022-12-29] MEDS: TAMSULOSIN HCL 0.4 MG CAP PO SCH (20:22)
[2022-12-29] MEDS: ATORVASTATIN 40 MG TAB PO SCH (20:22)
[2022-12-29] MEDS: guaiFENesin/DEXTROM SYRUP 200MG/20MG 10ML UDC PO PRN (20:23)
[2022-12-29] MEDS: NORTRIPTYLINE HCL 25 MG CAP PO SCH (20:24)
[2022-12-30] MEDS: ENOXAPARIN INJ 40 MG/0.4 ML SYR SQ SCH (05:08)
[2022-12-30] MEDS: guaiFENesin/DEXTROM SYRUP 200MG/20MG 10ML UDC PO PRN ×3 (05:08→21:49)
[2022-12-30] MEDS: ETODOLAC~ORDER AWAITING ACTION SCH ×3 (07:23→23:01)
[2022-12-30] MEDS: SPIRONOLACTONE 12.5 MG TAB PO SCH ×2 (08:08→17:10)
[2022-12-30] MEDS: FAMOTIDINE 20 MG TAB PO SCH ×2 (08:08→20:18)
[2022-12-30] MEDS: LUBIPROSTONE 8 MCG CAP PO SCH ×2 (08:08→20:17)
[2022-12-30] MEDS: carvediloL 12.5 MG TAB PO SCH ×2 (08:08→20:15)
[2022-12-30] MEDS: DOCUSATE SODIUM 100 MG CAP PO SCH ×3 (08:08→20:16)
[2022-12-30] MEDS: PANTOprazole 40 MG TAB PO SCH (08:09)
[2022-12-30] MEDS: allopurinoL 100 MG TAB PO SCH (08:09)
[2022-12-30] MEDS: FEXOFENADINE HCL 180 MG TAB PO SCH (08:09)
[2022-12-30] MEDS: ASPIRIN 81 MG CHEW PO SCH (08:09)
[2022-12-30] MEDS: dexAMETHasone 4 MG TAB PO SCH (08:09)
[2022-12-30] MEDS: amLODIPine BESYLATE 5 MG TAB PO SCH (08:09)
[2022-12-30] MEDS: ASCORBIC ACID 500 MG TAB PO SCH (08:09)
[2022-12-30] MEDS: TORSEMIDE 10 MG TAB PO SCH (08:10)
[2022-12-30] MEDS: TOPIRAMATE 100 MG TAB PO SCH ×2 (08:10→20:16)
[2022-12-30] MEDS: POLYETHYLENE (MIRALAX) 17 GM PACK PO SCH (08:10)
[2022-12-30] MEDS: CHOLECALCIFEROL 1,000 UNITS 25 MCG TAB PO SCH (08:10)
[2022-12-30] MEDS: MICONAZOLE NITRATE POWDER 85 GM TOP SCH (08:11)
[2022-12-30] MEDS: NYSTATIN CR 15 GM TUBE EXT SCH ×2 (08:11→20:18)
[2022-12-30] MEDS: oxyCODONE HCL IR 5 MG TAB (IMMEDIATE RELEASE) PO SCH ×3 (08:17→20:18)
[2022-12-30] MEDS: PREGABALIN 100 MG CAP PO SCH ×2 (08:17→20:18)
[2022-12-30 08:23] LABS: BUN Creatinine Ratio 19.4 (10-20); Calcium 8.8 mg/dl (8.6-10.3); Creatinine Clr Calc Pharmacy 95.1 ml/min; Est GFR (African American) 94.1 ml/min; Est GFR (Non-African American) 81.2 ml/min; Potassium 3.6 mmol/L (3.5-5.1)
[2022-12-30] MEDS ORDERED: COUGH DROP (SUGAR FREE) LOZ 24 LOZ/1 BOX BUCCAL ONE (10:38)
--- NOTE | 2022-12-30 14:35 | Hospitalist Progress Note ---
Date of Service December 30, 2022 Assessment & Plan (1) COVID-19: Plan: Patient with one week of symptom - nausea/vomiting/diarrhea, cough and episodes of confusion. Also with GAUTHIER. POx 92-94 at lowest on room air and was started on decadron. Has persistent dry cough, CXR negative for PNA APpetite improving, still feels weak but improving with walking -continue decadron, no role for Remdesevir as he presented 1 week into symptoms -Maintain isolation precautions -Monitor saturations-normal -PT/OT evaluation appreciated for acute weakness-ok to return home but pt not comfortable doing so yet -Maintain fall precautions -continue guaifenesin DM for cough (2) Severe obstructive sleep apnea: Plan: Chronic. -CPAP qHS (3) Hypertension: Plan: Blood pressure stable -Continue Amlodipine 5mg po daily -Continue Carvedilol 12.5mg po BID -Continue Spironolactone, torsemide (4) Hyperlipidemia: Plan: Chronic. Stable -Continue Atorvastatin 40mg po qHS (5) Gout: Plan: Chronic. Stable -Continue Allopurinol 100mg po daily (6) GERD (gastroesophageal reflux disease): Plan: Chronic. Stable -Continue Pepcid -Continue Protonix (7) Constipation: Plan: continue home meds no BM since admission (8) Common migraine without aura: Plan: resolved without intervention (9) COPD (chronic obstructive pulmonary disease): Plan: With cough but no wheezing. No home inhalers -Albuterol PRN continue decadron Ppx -Lovenox Code - Full Dispo - medically stable for discharge but pt wants to stay another night. Plan for dc to home tomorrow. Encouraged to find people to help him with meals etc. Called son Matt and left on 12/30 Admission and Anticipated Discharge Date Admission Date: December 29, 2022 Subjective Pt c/o sore throat, dry cough, and had a headache earlier that resolved on its own. This was one of his typical headaches. He is walking around the room. Has not moved his bowels since admission which he says is normal for him. He is nervous to go home because he is so worried about his 's condition Physical Exam Constitutional: WD/WN, vitals as above Neck: trachea midline, no thyromegaly Respiratory: normal respiratory effort, lungs clear to auscultation Cardiovascular: RRR, no murmur, no edema Chest (Breasts): Chest: normal inspection of chest Gastrointestinal (Abdomen): normal bowel sounds, soft, nontender, no hepatosplenomegaly Musculoskeletal: Extremities: extremities normal to inspection; no cyanosis and no clubbing Skin: no rashes, warm and dry Neurologic: moves all extremities and awake; no focal motor deficits Psychiatric: A+Ox3, euthymic affect Lymphatic: no lymphedema Results & Data Results & Data Vital Signs (Past 12 Hours) Vital Signs Temp Pulse Pulse Resp BP Pulse Ox O2 Del Method 12/30/22 09:00 Room Air 12/30/22 06:56 36.6 C 56 L 18 135/81 95 CPAP 12/30/22 03:11 61 16 96 O2 Flow Rate 12/30/22 09:00 12/30/22 06:56 12/30/22 03:11 3 Laboratory Results BMP reviewed PG Care Time/CCT Total # of Minutes Spent Total Time Spent with Patient: Total time spent is greater than 50% in coordination of care (as documented) at patient's floor/unit and/or counseling patient: Coding Level of Care Code 25144 SUB INP/OBS CARE 25MIN Diagnoses COVID-19 U07.1 Severe obstructive sleep apnea G47.33 Hypertension I10 Hyperlipidemia E78.5 Gout M10.9 GERD (gastroesophageal reflux disease) K21.9 Constipation K59.00 Common migraine without aura G43.009 COPD (chronic obstructive pulmonary disease) J44.9
[2022-12-30] MEDS: NORTRIPTYLINE HCL 25 MG CAP PO SCH (20:14)
[2022-12-30] MEDS: ATORVASTATIN 40 MG TAB PO SCH (20:17)
[2022-12-30] MEDS: TAMSULOSIN HCL 0.4 MG CAP PO SCH (20:18)
[2022-12-31] MEDS: guaiFENesin/DEXTROM SYRUP 200MG/20MG 10ML UDC PO PRN ×2 (05:17→16:31)
[2022-12-31] MEDS: ENOXAPARIN INJ 40 MG/0.4 ML SYR SQ SCH (05:17)
[2022-12-31] MEDS: FAMOTIDINE 20 MG TAB PO SCH (09:08)
[2022-12-31] MEDS: CHOLECALCIFEROL 1,000 UNITS 25 MCG TAB PO SCH (09:08)
[2022-12-31] MEDS: LUBIPROSTONE 8 MCG CAP PO SCH (09:08)
[2022-12-31] MEDS: carvediloL 12.5 MG TAB PO SCH (09:09)
[2022-12-31] MEDS: ASCORBIC ACID 500 MG TAB PO SCH (09:09)
[2022-12-31] MEDS: TORSEMIDE 10 MG TAB PO SCH (09:09)
[2022-12-31] MEDS: FEXOFENADINE HCL 180 MG TAB PO SCH (09:09)
[2022-12-31] MEDS: allopurinoL 100 MG TAB PO SCH (09:10)
[2022-12-31] MEDS: amLODIPine BESYLATE 5 MG TAB PO SCH (09:10)
[2022-12-31] MEDS: SPIRONOLACTONE 12.5 MG TAB PO SCH ×2 (09:10→16:55)
[2022-12-31] MEDS: DOCUSATE SODIUM 100 MG CAP PO SCH ×2 (09:10→14:53)
[2022-12-31] MEDS: TOPIRAMATE 100 MG TAB PO SCH (09:10)
[2022-12-31] MEDS: ASPIRIN 81 MG CHEW PO SCH (09:11)
[2022-12-31] MEDS: dexAMETHasone 4 MG TAB PO SCH (09:11)
[2022-12-31] MEDS: PANTOprazole 40 MG TAB PO SCH (09:12)
[2022-12-31] MEDS: POLYETHYLENE (MIRALAX) 17 GM PACK PO SCH (09:12)
[2022-12-31] MEDS: NYSTATIN CR 15 GM TUBE EXT SCH (09:13)
[2022-12-31] MEDS: oxyCODONE HCL IR 5 MG TAB (IMMEDIATE RELEASE) PO SCH ×2 (09:24→14:53)
[2022-12-31] MEDS: PREGABALIN 100 MG CAP PO SCH (09:24)
[2022-12-31] MEDS ORDERED: CHLORASEPTIC 1.4% SOLN 180 ML BTL MT PRN (09:34)
[2022-12-31] MEDS: MICONAZOLE NITRATE POWDER 85 GM TOP SCH (10:50)
[2022-12-31] MEDS: ETODOLAC~ORDER AWAITING ACTION SCH ×2 (10:50→17:17)
--- NOTE | 2022-12-31 11:58 | Discharge Summary ---
Discharge Summary Date of Service December 31, 2022 Notes For Next Care Provider Medication Changes From Visit Dexamethasone 6mg po daily x 6 more days Tessalon perles 200mg po tid prn cough Robitussin DM 10 mL po q6h prn CHloraseptic throat spray prn Admission HPI Per Admitting Provider Denver Johnston is a 71yo male with multiple medical comorbidities presenting with Covid-19 infection. Patient with one week of nausea, vomiting, diarrhea as well as dry cough, PERRY and periods of confusion and disorientation. He also feels quite weak and unsteady on his feet. Patient's with similar symptoms - is being admitted to PCU. Patient lives at home, is concerned about being home alone with unsteadiness/confusion In the ER he is afebrile, HD stable. O2 saturations maintained >94%. Ambulatory trial with acceptable saturations but patient is quite unsteady on his feet. Principal Dx & Hospital Course #1 = Principal Diagnosis (1) COVID-19: Patient with one week of symptom - nausea/vomiting/diarrhea, cough and episodes of confusion. Also with GAUTHIER. POx 92-94 at lowest on room air and was started on decadron. Has persistent dry cough,sore throat, CXR negative for PNA APpetite improving, still feels weak but weakness improving with walking -continue decadron x 10 day course, no role for Remdesevir as he presented 1 week into symptoms -Monitor saturations-normal -PT/OT evaluation appreciated for acute weakness-ok to return home. I encouraged him to use walker he has at home until stronger. He declines home PT -continue guaifenesin DM and Rx Tessalon perles for cough (2) Severe obstructive sleep apnea: Chronic. -CPAP qHS (3) Hypertension: Blood pressure stable -Continue Amlodipine 5mg po daily -Continue Carvedilol 12.5mg po BID -Continue Spironolactone, torsemide (4) Hyperlipidemia: Chronic. Stable -Continue Atorvastatin 40mg po qHS (5) Gout: Chronic. Stable -Continue Allopurinol 100mg po daily (6) GERD (gastroesophageal reflux disease): Chronic. Stable -Continue Pepcid -Continue Protonix (7) Constipation: continue home meds no BM since admission, chronic for him (8) Common migraine without aura: resolved without intervention (9) Acute metabolic encephalopathy: Metabolic encephalopathy, resolved (10) COPD (chronic obstructive pulmonary disease): With cough but no wheezing. No home inhalers -Albuterol PRN continue decadron Ppx -Lovenox Code - Full Dispo - medically stable for discharge Called son Matt and spoke with him on 12/30 Discharge Exam Constitutional WD/WN, vitals as above Neck trachea midline, no thyromegaly Respiratory normal respiratory effort, lungs clear to auscultation Cardiovascular RRR, no murmur, no edema Chest (Breasts) Chest: normal inspection of chest Gastrointestinal (Abdomen) normal bowel sounds, soft, nontender, no hepatosplenomegaly Musculoskeletal Extremities: extremities normal to inspection; no cyanosis and no clubbing Skin no rashes, warm and dry Neurologic moves all extremities and awake; no focal motor deficits Psychiatric A+Ox3, euthymic affect Lymphatic no lymphedema Updated Medication List Medication Instructions Recorded Confirmed Type aspirin 81 mg chewable tablet 81 mg PO QAM 02/11/18 12/27/22 History atorvastatin 40 mg tablet 40 mg PO HS 02/11/18 12/27/22 History carvedilol 12.5 mg tablet 12.5 mg PO BID 02/11/18 12/27/22 History Oxygen Home #1 ea 12/02/18 12/03/22 Rx fexofenadine 180 mg tablet 180 mg PO QAM 12/14/18 12/27/22 History (Marifer Allergy) pantoprazole 40 mg tablet,delayed 40 mg PO QAM 04/17/20 12/27/22 History release ascorbic acid (vitamin C) 500 mg 1,000 mg PO QAM 06/19/20 12/27/22 History tablet (Vitamin C) cholecalciferol (vitamin D3) 50 4,000 units PO QAM 06/19/20 12/27/22 History mcg (2,000 unit) tablet etodolac 500 mg tablet 500 mg PO QAM #90 tabs 06/22/22 12/27/22 Rx miconazole nitrate 2 % topical 1 applic topical DAILY #85 grams 07/03/22 12/27/22 Rx powder amlodipine 5 mg tablet 5 mg PO QAM #90 tabs 07/13/22 12/27/22 Rx famotidine 20 mg tablet 20 mg PO BID #180 tabs 07/20/22 12/27/22 Rx naloxegol 25 mg tablet (Movantik) 25 mg PO QAM #30 tabs 07/23/22 12/27/22 Rx torsemide 10 mg tablet 10 mg PO QAM #30 tabs 07/29/22 12/27/22 Rx cyanocobalamin (vitamin B-12) 1,000 mcg subcut MONTHLY 90 days 08/19/22 12/27/22 Rx 1,000 mcg/mL injection solution #3 mL pregabalin 100 mg capsule 100 mg PO BID #60 caps 08/19/22 12/27/22 Rx nystatin 100,000 unit/gram topical 1 applic topical BID #30 grams 10/23/22 12/27/22 Rx cream allopurinol 100 mg tablet 100 mg PO QAM #90 tabs 11/09/22 12/27/22 Rx alprazolam 0.5 mg tablet (Xanax) 0.5 mg PO .COMPLEX #2 tabs 11/09/22 12/27/22 Rx lubiprostone 24 mcg capsule 24 mcg PO BID #60 caps 11/17/22 12/27/22 Rx (Amitiza) spironolactone 25 mg tablet 12.5 mg PO BID #90 tabs 11/20/22 12/27/22 Rx oxycodone 5 mg tablet 10 mg PO Q8H PRN pain #180 tabs 12/03/22 12/27/22 Rx phenazopyridine 200 mg tablet 200 mg PO Q8H PRN pain #10 tabs 12/03/22 12/27/22 Rx (Pyridium) tamsulosin 0.4 mg capsule 0.4 mg PO HS #30 caps 12/03/22 12/27/22 Rx nortriptyline 50 mg capsule 150 mg PO HS 12/27/22 12/27/22 History topiramate 100 mg tablet 200 mg PO QPM 12/27/22 12/27/22 History topiramate 100 mg tablet (Topamax) 100 mg PO QAM 12/27/22 12/27/22 History benzonatate 200 mg capsule 200 mg PO TID PRN cough #30 caps 12/31/22 Rx dexamethasone 6 mg tablet 6 mg PO DAILY #6 tabs 12/31/22 Rx dextromethorphan-guaifenesin 5 10 ml PO Q6H PRN cough #237 mL 12/31/22 Rx mg-100 mg/5 mL oral liquid (Robitussin Cough-Chest Congestion DM) phenol 1.4 % mucosal aerosol spray 2 spray MT Q4H PRN sore throat 12/31/22 Rx (Sore Throat (phenol)) #177 mL Hospital Stay Data Consultations 12/28/22 00:25 ED Decision to Admit Stat Discharge Instructions Given to Patient (Per Discharging Provider) Please continue taking the steroid pill called dexamethasone for 6 more days for the COVID related bronchitis. You can take Robitussin DM OTC for cough or the prescribed Tessalon perles as needed for cough. If you are still feeling weak, you should use your walker as we discussed. Total Time Total Time Spent Total Time Spent (In Minutes): 35 min Coding Level of Care Code 65898 INP/OBS DISCH >30 MIN Diagnoses COVID-19 U07.1 Severe obstructive sleep apnea G47.33 Hypertension I10 Hyperlipidemia E78.5 Gout M10.9 GERD (gastroesophageal reflux disease) K21.9 Constipation K59.00 Common migraine without aura G43.009 Acute metabolic encephalopathy G93.41 COPD (chronic obstructive pulmonary disease) J44.9
== END 2022-12-31 18:03 | disposition home or self-care (01) | DRG 177 ==
LOC: 3E 21:51 → ED 21:51 → SUATTDRO 12-28 00:27 → 3E 12-28 01:41